=== PATIENT | female | born 1995 | race Caucasian/White ===

== ENCOUNTER 2021-06-02 06:48 | Emergency (ER) | payer MEDICAID, SELFPAY ==
[2021-06-02 06:52] VITALS: BP 114/73; PULSE 100; RESP 18; TEMP 36.7; O2SAT 96; BMI 38.0
--- NOTE | 2021-06-02 07:08 | W.ED.DENTAL ---
HPI - Dental/Oral General: Chief complaint: Dental/Oral Stated complaint: SWOLLEN FACE, SOB Time Seen by Provider: 06/02/21 06:57 History of Present Illness: 6-year-old female presents emergency room complaining of left lower mandible swelling and discomfort. She had it for a couple of days swelling significantly increased overnight. She been planning to see a dentist but was not yet able to. MD Complaint: tooth pain Onset (ago): hour(s) Duration: constant Severity: mild Relieving factors: nothing Exacerbating factors: nothing Associated symptoms: Reports gum swelling; Denies ear or mastoid pain, fever(s), odynophagia, sore throat or tongue swelling Treatment prior to arrival: none Review of Systems Const: Denies: fever(s) ENMT: Denies: odynophagia or ear or mastoid pain Card: Denies: chest pain, edema, dyspnea on exertion or orthopnea Resp: Denies: dyspnea, productive cough or non-productive cough GI: Denies: abdominal pain, nausea, vomiting, diarrhea or constipation All/Imm: Denies: tongue swelling [facility] PFSH: Medical History (Updated 06/02/21 @ 07:40 by Denny Trejo DO) No significant past medical history Surgical History (Updated 06/02/21 @ 07:40 by Denny Trejo DO) No significant past surgical history Social History Smoking and tobacco status: current every day smoker Alcohol intake: never Female Reproductive History: Date of last menstrual period: 04/28/21 Physical Exam Const: COMMON NORMALS: no acute distress GENERAL APPEARANCE: cooperative and comfortable ORIENTATION/CONSCIOUSNESS: Yes awake, Yes oriented to person, Yes oriented to place and Yes oriented to time HENMT: COMMON NORMALS: normocephalic, atraumatic and hearing grossly normal bilaterally HEAD & SCALP: normocephalic and atraumatic OTHER: Swelling of the left lower mandible anteriorly, associated with the left mandibular canine teeth. No identifiable abscess. Dental caries noted in that region. Tender to palpation no submandibular fullness no palpable cervical lymphadenopathy Neck/C-Spine: COMMON NORMALS: no JVD Resp: COMMON NORMALS: normal respiratory effort, No retractions, No use of accessory muscles and clear to auscultation bilaterally AUSCULTATION: clear to auscultation bilaterally Cardio: COMMON NORMALS: no JVD, regular rate, regular rhythm and No murmurs present (Cardio) RATE: regular rate RHYTHM: regular rhythm GI: COMMON NORMALS: Soft to palpation and No hepatosplenomegaly present AUSCULTATION: Yes normoactive bowel sounds PALPATION: Yes Soft to palpation, No Tenderness to palpation present (GI), No Guarding due to palpation present (GI) and Yes No hepatosplenomegaly present Extremity: COMMON NORMALS: normal to inspection, capillary refill normal, no clubbing, cyanosis or edema, no calf tenderness and no pedal edema Neuro: SENSORIUM/ORIENTATION: Yes oriented to person, Yes oriented to place and Yes oriented to time Skin: COMMON NORMALS: no rashes or lesions noted GENERAL SKIN EXAM: no rashes or lesions noted Course Vital Signs: Vital signs: Vital Signs Temperature 98.0 F 06/02/21 07:10 Pulse Rate 98 06/02/21 07:21 Respiratory Rate 18 06/02/21 07:21 Blood Pressure 116/70 06/02/21 07:21 Pulse Oximetry 97 06/02/21 07:21 MDM - Dental/Oral Medical Decision Making Dental caries I cannot identify a abscess that I could drain at this time. We will go ahead and start the patient on Augmentin also gave hydrocodone for pain encouraged to follow-up with the dentist as soon as possible Discharge Plan Discharge Patient Disposition: Home Clinical Impression: Dental caries Condition: Stable Prescriptions: New Augmentin 875-125 mg tablet 1 tab PO BID Qty: 20 0RF hydrocodone-acetaminophen 5-325 mg tablet 1 tab PO Q6H PRN (Reason: pain) Qty: 10 0RF Discharge Orders: Discharge ED (Routine); Ordered 06/02/21 Ordered By: Denny Trejo Referrals: Alyson Irby MD [Primary Care Provider] - Discharge Diet: Soft Mechanical Discharge Activity: Increase activity as tolerated Activity Restrictions/Additional Instructions: Follow-up with a dentist as soon as you are able. If you have any further problems or difficulties you may return to the emergency room. Coding Level of Care Code ED Cane Flume Feeding Machine Operator for Michael Pop
[2021-06-02 07:10] VITALS: BP 116/70; PULSE 98; RESP 18; TEMP 36.7; O2SAT 97
[2021-06-02 07:21] VITALS: BP 116/70; PULSE 98; RESP 18; O2SAT 97
== END 2021-06-02 07:20 | disposition home or self-care (01) ==
PROVIDERS: Emergency Provider Family Medicine; PCP Family Medicine
DX: K02.9 Dental caries, unspecified (principal); F17.210 Nicotine dependence, cigarettes, uncomplicated
CPT/HCPCS: 99282

== ENCOUNTER → 2021-10-16 14:22 | Outpatient (BNVA) | payer BC, MEDICAID, SELFPAY | PROVIDERS: Visit Provider Registered Nurse Neonatal Intensive Care | DX: R11.2 Nausea with vomiting, unspecified (principal) | CPT/HCPCS: 81025 ==

== ENCOUNTER → 2021-11-02 13:28 | Outpatient (BNVA) | payer BC, MEDICAID, SELFPAY | PROVIDERS: Visit Provider Psychiatry & Neurology Psychiatry | DX: F43.12 Post-traumatic stress disorder, chronic (principal); F33.1 Major depressive disorder, recurrent, moderate; F41.1 Generalized anxiety disorder; F17.210 Nicotine dependence, cigarettes, uncomplicated | CPT/HCPCS: 99204 ==

== ENCOUNTER → 2022-08-17 11:25 | Outpatient (BNVA) | payer BC, MEDICAID, SELFPAY | PROVIDERS: Visit Provider Emergency Medicine | DX: N64.4 Mastodynia (principal) | CPT/HCPCS: 81025 ==

== ENCOUNTER 2022-09-26 21:03 | Emergency (ER) | payer MEDICAID, SELFPAY ==
[2022-09-26 21:10] VITALS: BP 123/74; PULSE 98; RESP 12; TEMP 36.5; O2SAT 98; BMI 42.5
[2022-09-26 21:17] VITALS: BP 132/81; PULSE 93; RESP 18; O2SAT 98
--- NOTE | 2022-09-26 21:23 | W.ED.ABDPA2 ---
HPI - Abdominal Pain General: Chief Complaint: Abdominal Pain Stated Complaint: hernia pain Time Seen by Provider: 09/26/22 21:06 Source: patient Mode of arrival: ambulatory Limitations: no limitations History of Present Illness: 19-year-old female states she has had umbilical hernia over the last 3 to 4 months that she has noticed. She states that seems to been getting larger she has some pain with that she states that she is always able to reduce it is easily reducible here. She currently 10 weeks states that she want to get the hernia checked out. Denies any complaints of the baby she had an ultrasound denies any bleeding denies any discharge. Associated Symptoms: Denies chills, diarrhea, dysuria, fever(s), nausea and vomiting Review of Systems Const: Denies: fever(s) or chills ENMT: Denies: throat pain or dental pain Card: Denies: chest pain Resp: Denies: dyspnea GI: Reports: abdominal pain; Denies: nausea, vomiting or diarrhea : Denies: dysuria Musc: Denies: neck pain or back pain Skin/Breast: Denies: rash Neuro: Denies: headache(s) PFSH ED PFSH: Medical History No significant past medical history Psychiatric care Surgical History No significant past surgical history Social History Smoking and tobacco status: current every day smoker cigarettes Packs smoked per day: 1 Years cigarettes smoked: 12 Quit status (tobacco): not considering quitting Second hand smoke exposure: No Smoking risk assessment/counseling performed?: No Alcohol intake: former Year of sobriety/quit date alcohol: 2021 Desire information about alcohol rehabilitation?: No Counseling given: No Substance/Drug Use: never Desire information about substance/drug rehabilitation?: No Counseling given: No Physical Exam Const: COMMON NORMALS: no acute distress and patient oriented x3 HENMT: COMMON NORMALS: normocephalic and atraumatic HEAD & SCALP: normocephalic and atraumatic Eye: COMMON NORMALS: conjunctivae normal CONJUNCTIVA: Yes conjunctivae normal Chest: COMMONS NORMALS: normal inspection of the chest Resp: COMMON NORMALS: normal respiratory effort Cardio: COMMON NORMALS: regular rate RATE: regular rate GI: OTHER: Umbilical hernia palpated no tenderness at this time no strangulation hernias were easily reducible Extremity: COMMON NORMALS: normal to inspection Neuro: COMMON NORMALS: patient oriented x3 Psych: COMMON NORMALS: mental status grossly normal Course Vital Signs: Vital signs: Vital Signs Temperature 97.7 F 09/26/22 21:10 Pulse Rate 93 09/26/22 21:17 Respiratory Rate 18 09/26/22 21:17 Blood Pressure 132/81 09/26/22 21:17 Pulse Oximetry 98 09/26/22 21:17 Oxygen Delivery Me thod Room Air 09/26/22 21:17 MDM - Abdominal Pain Medical Decision Making Patient presents with umbilical hernia its been there for months is easily reducible she has no signs of strangulation here her abdominal exam is benign she is currently 10 weeks she take Tylenol for the pain follow-up with her OB she does not need emergent surgery at this time. Discharge Plan Discharge Patient Disposition: Home Clinical Impression: Hernia, umbilical Condition: Stable Prescriptions: No Action sertraline [Zoloft] 100 mg tablet 100 mg PO DAILY Qty: 30 2RF trazodone 50 mg tablet 100 mg PO .HS PRN (Reason: insomnia) Qty: 60 1RF PNV #[id number] 30 mg iron-10 mg iron-1 mg capsule 1 cap PO DAILY Qty: 30 2RF Discharge Orders: Discharge ED (Routine); Ordered 09/26/22 Ordered By: Danitza Price Referrals: Alyson Irby MD [Primary Care Provider] - 1-3 days Discharge Diet: Advance as tolerated Discharge Activity: Resume usual activity Patient Instructions: Umbilical Hernia (ED) Coding Level of Care Code ED As[employer]er [employer] for Michael Pop
[2022-09-26 21:39] VITALS: BP 146/104; PULSE 91; RESP 18; O2SAT 96
== END 2022-09-26 21:42 | disposition home or self-care (01) ==
PROVIDERS: Emergency Provider Emergency Medicine; PCP Family Medicine
DX: O26.891 Other specified pregnancy related conditions, first trimester (principal); K42.9 Umbilical hernia without obstruction or gangrene; Z3A.10 10 weeks gestation of pregnancy; O99.331 Smoking (tobacco) complicating pregnancy, first trimester; F17.210 Nicotine dependence, cigarettes, uncomplicated
CPT/HCPCS: 99283

== ENCOUNTER 2022-11-01 22:49 | Emergency (ER) | payer MEDICAID, SELFPAY ==
[2022-11-01 23:19] VITALS: BP 127/82; PULSE 91; RESP 18; O2SAT 98; BMI 41.1
--- NOTE | 2022-11-01 23:26 | W.ED.ABDPA2 ---
HPI - Abdominal Pain General: Chief Complaint: Abdominal Pain Stated Complaint: 15 Wks Fell at work ABD Pain Time Seen by Provider: 11/01/22 23:26 PFSH ED PFSH: Medical History No significant past medical history Psychiatric care Surgical History No significant past surgical history Social History Smoking and tobacco status: current every day smoker cigarettes Packs smoked per day: 1 Years cigarettes smoked: 12 Quit status (tobacco): not considering quitting Second hand smoke exposure: No Smoking risk assessment/counseling performed?: No Alcohol intake: former Year of sobriety/quit date alcohol: 2021 Desire information about alcohol rehabilitation?: No Counseling given: No Substance/Drug Use: never Desire information about substance/drug rehabilitation?: No Counseling given: No Course Vital Signs: Vital signs: Vital Signs Pulse Rate 91 11/01/22 23:19 Respiratory Rate 18 11/01/22 23:19 Blood Pressure 127/82 11/01/22 23:19 Pulse Oximetry 98 11/01/22 23:19 Oxygen Delivery Me thod Room Air 11/01/22 23:19 Discharge Plan Discharge Condition: Stable Prescriptions: No Action sertraline [Zoloft] 100 mg tablet 100 mg PO DAILY Qty: 30 2RF trazodone 50 mg tablet 100 mg PO .HS PRN (Reason: insomnia) Qty: 60 1RF PNV #[id number] acid-[id number] 30 mg iron-10 mg iron-1 mg capsule 1 cap PO DAILY Qty: 30 2RF Referrals: Alyson Irby MD [Primary Care Provider] - Coding Level of Care Code ED Steward/Stewardess for Michael Pop
[2022-11-01 23:52] LABS: Basophils # 0.1 10^3/uL (0.0-0.1); Basophils % 0.5 %; Eosinophils # 0.3 10^3/uL (0.0-0.8); Eosinophils % 2.5 %; Hemoglobin 11.7 g/dL (11.5-15.3); Lymphocytes # 2.9 10^3/uL (0.8-4.8); Lymphocytes % 26.3 %; Mean Corpuscular HGB Conc 32.5 g/dL (30.0-36.0); Mean Corpuscular Hemoglobin 28.8 pg (28.0-34.0); Mean Corpuscular Volume 88.7 fl (81-99); Mean Platelet Volume 9.6 fL (7.4-10.4); Monocytes # 0.9 10^3/uL (0.2-0.9); Monocytes % 8.3 %; Neutrophils # 6.83 10^3/uL (1.8-7.7); Neutrophils % 61.9 %; Nucleated Red Blood Cells % 0 %; Platelet Count 289 10^3/cmm (130-400); Red Blood Count 4.06 10^6/uL (4.1-5.3); Red Cell Distribution Width 13.2 % (12.1-15.1)
--- NOTE | 2022-11-01 23:56 | ED_ITS ---
HPI - General: Chief complaint: Abdominal Pain Stated complaint: 15 Wks Fell at work ABD Pain Time Seen by Provider: 11/01/22 23:26 History of Present Illness: Patient is a 15-week female who comes to the ED with abdominal cramping pain. Patient states that yesterday she was at work in the evening and tripped and fell hitting the front part of her abdomen on ground. Denies any injury at that time. Today she woke up and she started developing a lower ab dominal cramping type pain that she rates a 6 out of 10. She describes the pain as cramping that she usually gets before she starts her menstrual period. Denies any vaginal bleeding or vaginal discharge. Endorses having some occasional morning sickness for this but no other complications. Patient sees Dr. Irby for OB care. Denies any fever, nausea, vomiting, dysuria or hematuria. Patient states she took a dose of Tylenol before coming to the ED. Associated symptoms: Deny abdominal pain, dysuria, headache(s), nausea, vaginal discharge or vomiting Review of Systems Const: Denies: fever(s), chills or fatigue Eyes: Denies: change in vision or eye discomfort ENMT: Denies: throat pain, odynophagia, nasal discharge or nasal congestion Card: Denies: chest pain, palpitations, edema, swelling of feet/ankles, dyspnea on exertion or orthopnea Resp: Denies: dyspnea, productive cough or non-productive cough GI: Denies: abdominal pain, nausea, vomiting, diarrhea, constipation or hematochezia : Reports: pelvic pain (Cramping pain); Denies: flank pain, dysuria, hematuria, vaginal bleeding or vaginal discharge Musc: Denies: neck pain, back pain or extremity swelling Skin/Breast: Denies: rash or new lesions Neuro: Denies: headache(s), numbness in extremities or weakness in extremities PFSH ED PFSH: Medical History No significant past medical history Psychiatric care Surgical History No significant past surgical history Social History Smoking and tobacco status: current every day smoker cigarettes Packs smoked per day: 1 Years cigarettes smoked: 12 Quit status (tobacco): not considering quitting Second hand smoke exposure: No Smoking risk assessment/counseling performed?: No Alcohol intake: former Year of sobriety/quit date alcohol: 2021 Desire information about alcohol rehabilitation?: No Counseling given: No Substance/Drug Use: never Desire information about substance/drug rehabilitation?: No Counseling given: No Physical Exam Const: COMMON NORMALS: no acute distress, patient oriented x3, healthy appearing and alert HENMT: COMMON NORMALS: normocephalic HEAD & SCALP: normocephalic MOUTH: Normal oral and palatal mucosa present THROAT: posterior oropharynx normal and uvula midline Neck/C-Spine: COMMON NORMALS: supple GENERAL: Yes normal visual inspection Resp: COMMON NORMALS: normal respiratory effort, No retractions, No use of accessory muscles and clear to auscultation bilaterally AUSCULTATION: clear to auscultation bilaterally Cardio: COMMON NORMALS: regular rate, regular rhythm, S1 normal heart sound present, S2 normal heart sound present, No gallops present (Cardio), No clicks present (Cardio), No murmurs present (Cardio) and Peripheral pulses 2+ throughout RATE: regular rate RHYTHM: regular rhythm HEART SOUNDS: S1 normal heart sound present and S2 normal heart sound present PERIPHERAL PULSES: Peripheral pulses 2+ throughout GI: COMMON NORMALS: Normal to inspection, nondistended, normoactive bowel sounds present, Soft to palpation and no masses PALPATION: Yes Soft to palpation and Yes Tenderness to palpation present (GI) (Mild generalized central lower abdominal tenderness) : COMMON NORMALS: Yes no CVA tenderness BLADDER/KIDNEY EXAM: Yes no CVA tenderness Back/Pelvis: COMMON NORMALS: no CVA tenderness Extremity: COMMON NORMALS: normal to inspection Neuro: COMMON NORMALS: patient oriented x3 SENSORIUM/ORIENTATION: Yes alert GAIT: Yes Normal gait present Skin: GENERAL SKIN EXAM: dry skin Course Vital Signs: Vital signs: Vital Signs Temperature 98.3 F 11/02/22 00:08 Pulse Rate 76 11/02/22 02:03 Respiratory Rate 18 11/01/22 23:19 Blood Pressure 103/59 11/02/22 02:03 Pulse Oximetry 97 11/02/22 02:03 Oxygen Delivery Me thod Room Air 11/02/22 02:03 MDM - OB/Uterine Contractions Medical Decision Making Patient is a 15-week female who comes to the ED with abdominal cramping pain. Patient states that yesterday she was at work in the evening and tripped and fell hitting the front part of her abdomen on ground. Denies any injury at that time. Today she woke up and she started developing a lower abdominal cramping type pain that she rates a 6 out of 10. She describes the pain as cramping that she usually gets before she starts her menstrual period. Denies any vaginal bleeding or vaginal discharge. Endorses having some occasional morning sickness for this but no other complications. Patient sees Dr. Irby for OB care. Denies any fever, nausea, vomiting, dysuria or hematuria. Patient states she took a dose of Tylenol before coming to the ED. vital stable. she appears nontoxic in no acute distress or pain. She has some mild lower abdominal generalized tenderness but rest of exam is benign. CBC, CMP, lipase and UA were all unremarkable. OB ultrasound showed single live fetus at the age of 15 weeks and a day and no other acute findings noted. Petty ent was diagnosed with lower abdominal cramping pain while and she was stable for discharge home. Told to follow-up with her OB at her next scheduled appointment. Return to ED precautions given. Patient understood and agreed with plan. Lab Data I reviewed the patient's lab results. 11/01/22 23:45 11/01/22 23:45 Radiology Impressions Obstetrics Ultrasound 11/02/22 23:54 IMPRESSION: 1. Single living fetus, composite age: 15 weeks, 1 day. 2. Anterior placenta. No visible placental abnormality on the provided images. 3. Normal amniotic fluid volume. 4. Other details discussed above. Laboratory Results WBC 11.0 10^3/uL (4.0-10.0) H 11/01/22 23:45 RBC 4.06 10^6/uL (4.1-5.3) L 11/01/22 23:45 Hgb 11.7 g/dL (11.5-15.3) 11/01/22 23:45 Hct 36.0 % (37.0-47.0) L 11/01/22 23:45 MCV 88.7 fl (81-99) 11/01/22 23:45 MCH 28.8 pg (28.0-34.0) 11/01/22 23:45 MCHC 32.5 g/dL (30.0-36.0) 11/01/22 23:45 RDW 13.2 % (12.1-15.1) 11/01/22 23:45 Plt Count 289 10^3/cmm (130-400) 11/01/22 23:45 MPV 9.6 fL (7.4-10.4) 11/01/22 23:45 Neut % (Auto) 61.9 % 11/01/22 23:45 Lymph % (Auto) 26.3 % 11/01/22 23:45 [place] % (Auto) 8.3 % 11/01/22 23:45 Eos % (Auto) 2.5 % 11/01/22 23:45 Baso % (Auto) 0.5 % 11/01/22 23:45 Neut # (Auto) 6.83 10^3/uL (1.8-7.7) 11/01/22 23:45 Lymph # (Auto) 2.9 10^3/uL (0.8-4.8) 11/01/22 23:45 [place] # (Auto) 0.9 10^3/uL (0.2-0.9) 11/01/22 23:45 Eos # (Auto) 0.3 10^3/uL (0.0-0.8) 11/01/22 23:45 Baso # (Auto) 0.1 10^3/uL (0.0-0.1) 11/01/22 23:45 Nucleated RBC % (auto) 0 % 11/01/22 23:45 Nucleated RBCs # 0.0 /100WBC 11/01/22 23:45 Sodium 137 mmol/L (136-145) 11/01/22 23:45 Potassium 3.6 mmol/L (3.5-5.1) 11/01/22 23:45 Chloride 104 mmol/L (98-107) 11/01/22 23:45 Carbon Dioxide 21 mmol/L (22-29) L 11/01/22 23:45 Anion Gap 15.6 (5-19) 11/01/22 23:45 BUN 8 mg/dL (6-20) 11/01/22 23:45 Creatinine 0.4 mg/dL (0.5-0.9) L 11/01/22 23:45 GFR Calculation 190.1 mL/min (90-130) H 11/01/22 23:45 Glucose 116 mg/dL (65-115) H 11/01/22 23:45 Calculated Osmolality 283 mOsm/kg (285-295) L 11/01/22 23:45 Calcium 8.7 mg/dL (8.5-10.5) 11/01/22 23:45 Total Bilirubin 0.2 mg/dL (0.15-1.2) 11/01/22 23:45 AST 17 U/L (0-32) 11/01/22 23:45 ALT 21 U/L (0-33) 11/01/22 23:45 Alkaline Phosphatase 99 U/L (35-105) 11/01/22 23:45 Total Protein 6.7 g/dL (6.6-8.7) 11/01/22 23:45 Albumin 3.7 g/dL (3.5-5.2) 11/01/22:45 Globulin 3.0 g/dL (1.3-4.6) 11/01/22 23:45 Lipase 21 U/L (13-60) 11/01/22 23:45 Urine Color Light yellow (Yellow) 11/02/22 00:05 Urine Appearance Cloudy (CLEAR) A 11/02/22 00:05 Urine pH 6.5 (5-7) 11/02/22 00:05 Ur Specific [place] 1.020 (1.005-1.030) 11/02/22 00:05 Urine Protein Neg (Negative) 11/02/22 00:05 Urine Glucose (UA) Norm (Normal) 11/02/22 00:05 Urine Ketones Negative (Negative) 11/02/22 00:05 Urine Blood Neg (Negative) 11/02/22 00:05 Urine Nitrate Negative (Negative) 11/02/22 00:05 Urine Bilirubin Neg (Negative) 11/02/22 00:05 Urine Urobilinogen Neg mg/dL (Negative) 11/02/22 00:05 Ur Leukocyte Esterase 2+ (Negative) H 11/02/22 00:05 Urine RBC 0-4 /hpf (0-2) H 11/02/22 00:05 Urine WBC 5-10 /hpf (0-5) H 11/02/22 00:05 Ur Squamous Epith Cells 15-25 /hpf (0-5) H 11/02/22 00:05 Amorphous Sediment Not Reportable 11/02/22 00:05 Urine Bacteria 2+ /hpf (NONE) H 11/02/22 00:05 Discharge Plan Discharge Patient Disposition: Home Clinical Impression: with abdominal cramping of lower quadrant, antepartum Condition: Stable Prescriptions: No Action sertraline [Zoloft] 100 mg tablet 100 mg PO DAILY Qty: 30 2RF trazodone 50 mg tablet 100 mg PO .HS PRN (Reason: insomnia) Qty: 60 1RF PNV #[id number] acid-[id number] 30 mg iron-10 mg iron-1 mg capsule 1 cap PO DAILY Qty: 30 2RF Discharge Orders: Discharge ED (Routine); Ordered 11/02/22 Ordered By: Ramirez Humphreys Referrals: Alyson Irby MD [Primary Care Provider] - Discharge Diet: Regular Discharge Activity: Increase activity as tolerated Patient Instructions: Abdominal Pain (ED) Activity Restrictions/Additional Instructions: Follow-up with your OB at your next scheduled appointment. Continue taking all medications as previously prescribed. Return to the ER or your medical provider if condition worsens. Please read and understand discharge instructions. Thank you for choosing [facility] for your healthcare needs today. Please realize this is an emergency room and that we are providing you with a medical screening exam and this may not be complete and all inclusive of all the testing and or work up that you may need to determine your ailment or severity of your illness. It is very important that you follow up as instructed or that you return to the Emergency Department should you have concerns or if your condition changes or worsens in any way. Coding Level of Care Code ED Pulverizer Operator for Michael oPp
[2022-11-02 00:08] VITALS: TEMP 36.8
[2022-11-02 00:12] LABS: Alanine Aminotransferase 21 U/L (0-33); Albumin Level 3.7 g/dL (3.5-5.2); Alkaline Phosphatase 99 U/L (35-105); Anion Gap 15.6 (5-19); Aspartate Amino Transferase 17 U/L (0-32); Blood Urea Nitrogen 8 mg/dL (6-20); Calcium 8.7 mg/dL (8.5-10.5); Carbon Dioxide 21 mmol/L (22-29); Chloride 104 mmol/L (98-107); Glomerular Filtration Rate 190.1 mL/min (90-130); Glucose 116 mg/dL (65-115); Lipase 21 U/L (13-60); Osmolality Calculated 283 mOsm/kg (285-295); Potassium 3.6 mmol/L (3.5-5.1); Sodium 137 mmol/L (136-145); Total Bilirubin 0.2 mg/dL (0.15-1.2); Total Protein 6.7 g/dL (6.6-8.7)
[2022-11-02 00:18] LABS: Add Urine Microscopic? YES; Bacteria Urine 2+ /hpf; Bilirubin Urine Neg (Negative); Blood Urine Neg (Negative); Glucose Urine UA Norm (Normal); Ketones Urine Negative (Negative); Leukocyte Esterase Urine 2+ (Negative); Nitrate Urine Negative (Negative); Protein Urine Neg (Negative); RBC Urine 0-4 /hpf (0-2); Squamous Epithelial Cell Urine 15-25 /hpf (0-5); Urine Appearance Cloudy (CLEAR); Urine Color Light yellow (Yellow); Urobilinogen Urine Neg (Negative); pH Urine 6.5 (5-7)
[2022-11-02 00:19] LABS: Add Urine Culture? No
[2022-11-02 02:03] VITALS: BP 103/59; PULSE 76; O2SAT 97
[2022-11-02 03:09] VITALS: BP 102/61; PULSE 72; RESP 18; O2SAT 95
--- NOTE | 2022-11-02 23:54 | USR_ITS ---
PROCEDURE INFORMATION: Exam: US After First Trimester, Transabdominal Exam date and time: 11/02/2022 12:49 AM Age: 27 years old Clinical indication: complicated by abdominal or pelvic pain; Other: Ground-level fall at work on 10/31/22 C/O pelvic pain which radiates to the back. No vaginal bleeding. Gestational age or lmp: 14w 4d by lmp; ; Additional info: Abdominal cramping-15 weeks LABS AND CLINICAL REPORTS: Last menstrual period start date: 07/23/2022 Gestational age (Established): 14 w 4 d Estimated due date (Established): 04/29/2023 TECHNIQUE: Imaging protocol: Real-time transabdominal obstetrical ultrasound of the maternal pelvis and a second or third trimester with image documentation. COMPARISON: No relevant prior studies available. FINDINGS: Single living fetus in transverse lie. Anterior placenta. No visible placental abnormality on the provided images. No significant subchorionic hematoma visualized. Amniotic fluid volume within normal limits, LATOYA 9.1 cm. Cervical length was estimated with transabdominal scanning, measuring approximately 4.3 cm. No definite cervical canal dilation or fluid on the provided images. BPD: , 2.8 cm. , 15 weeks, 0 days HC: , 10.6 cm. , 15 weeks, 0 days AC: , 9.4 cm. , 15 weeks, 3 days FL: , 1.6 cm. , 14 weeks, 6 days Composite age: 15 weeks, 1 day. Estimated weight: 116 grams, (0 lb 4 oz). heart activity documented by the technologist, 150 bpm. Evaluation of anatomy still limited by early gestation. Complete/detailed evaluation of anatomy was not performed/possible at this time. stomach and cord insertion were grossly visualized at this time, as were all 4 extremities. Followup/complete evaluation of anatomy recommended, as clinically appropriate. Neither maternal ovary is visualized at this time. No visible maternal adnexal abnormality on the provided images. The urinary bladder was not completely evaluated/imaged at this time. US/US OB limited [id number] IMPRESSION: 1. Single living fetus, composite age: 15 weeks, 1 day. 2. Anterior placenta. No visible placental abnormality on the provided images. 3. Normal amniotic fluid volume. 4. Other details discussed above.
== END 2022-11-02 03:17 | disposition home or self-care (01) ==
PROVIDERS: Emergency Provider Physician Assistant; PCP Family Medicine
DX: O26.892 Other specified pregnancy related conditions, second trimester (principal); R10.30 Lower abdominal pain, unspecified; Z3A.15 15 weeks gestation of pregnancy
CPT/HCPCS: 36415; 76815; 80053; 81001; 83690; 85025; 99284

== ENCOUNTER 2023-02-03 16:55 | Outpatient (CLI) | payer BC, SELFPAY ==
[2023-02-03] VITALS (9 sets, daily range): BP systolic 88–152; BP diastolic 51–86; PULSE 94–120; RESP 16–17; BMI 43.9
== END 2023-02-03 18:10 | disposition home or self-care (01) ==
LOC: OPOB 16:56 → OBGYN 16:57
PROVIDERS: PCP Family Medicine; Visit Provider Family Medicine
DX: O36.8190 Decreased fetal movements, unspecified trimester, not applicable or unspecified (principal); Z3A.00 Weeks of gestation of pregnancy not specified
CPT/HCPCS: 59025; 99211

== ENCOUNTER 2023-03-27 16:18 | Outpatient (CLI) | payer BC, SELFPAY ==
[2023-03-27 16:18] VITALS: BMI 44.9
[2023-03-27 16:39] VITALS: RESP 18
[2023-03-27 16:41] VITALS: BP 115/70; PULSE 99
[2023-03-27 17:01] VITALS: BP 134/81; PULSE 101
== END 2023-03-27 17:20 | disposition home or self-care (01) ==
LOC: OPOB 16:24 → OBGYN 16:25
PROVIDERS: PCP Family Medicine; Visit Provider Family Medicine
DX: O24.419 Gestational diabetes mellitus in pregnancy, unspecified control (principal); Z3A.00 Weeks of gestation of pregnancy not specified
CPT/HCPCS: 59025; 99211

== ENCOUNTER 2023-04-03 16:26 | Outpatient (CLI) | payer BC, SELFPAY ==
[2023-04-03 16:32] VITALS: BP 125/72; PULSE 110; TEMP 35.9
[2023-04-03 16:34] VITALS: BMI 46.0
[2023-04-03 16:38] VITALS: RESP 16; TEMP 36.6
[2023-04-03 17:05] VITALS: BP 125/72; PULSE 110; RESP 16; TEMP 36.6
== END 2023-04-03 17:05 | disposition home or self-care (01) ==
LOC: OPOB 16:26 → OBGYN 16:27
PROVIDERS: PCP Family Medicine; Visit Provider Family Medicine
DX: O24.419 Gestational diabetes mellitus in pregnancy, unspecified control (principal); Z3A.00 Weeks of gestation of pregnancy not specified
CPT/HCPCS: 59025

== ENCOUNTER → 2023-04-19 09:58 | Day surgery (SDC) | payer BC, MEDICAID, SELFPAY | PROVIDERS: PCP Family Medicine; Visit Provider Family Medicine | DX: Z01.818 Encounter for other preprocedural examination (principal) ==

== ENCOUNTER 2023-04-23 05:10 | Inpatient (IN) | payer BC, MEDICAID, SELFPAY ==
--- NOTE | 2023-04-19 10:37 | ANES.PREANE2 ---
Pre-Anesthetic Assessment Height/Weight: Height 1.6 m Operation Date: 04/23/23 07:20 Proposed Procedures p Section(Not Applicable) - Alyson Irby MD Familial anesthetic complications: None Social No alcohol and No tobacco Exam alert, oriented x 3, clear to auscultation bilaterally and regular rate & rhythm Airway Mallampati: Class I Dentition: full Anesthetic Plan ASA status: 2 Anesthesia: Regional (specify below) Other: spinal Risk of > 500 ml blood loss (7ml/kg in children): Yes, adequate IV access and fluids planned Medications/Allergies Home Medications Medication Instructions Recorded Confirmed Last Taken Type vitamin#30 30 mg iron-10 1 cap PO DAILY #30 caps 08/17/22 03/22/23 Unknown Rx mg iron-folic acid 1 mg-omg3 capsule trazodone 50 mg tablet 100 mg (2 x 50 mg) PO .HS PRN 12/21/22 02/03/23 Unknown Rx insomnia #60 tabs sertraline 100 mg tablet (Zoloft) 100 mg PO DAILY #90 tabs 03/22/23 03/22/23 Unknown Rx Allergies Allergy/AdvReac Type Severity Reaction Status Date / Time No Known Allergies Allergy Verified 03/22/23 13:24 [facility] Anesthesia Medical History No significant past medical history Psychiatric care Surgical History No significant past surgical history Social History Smoking and tobacco/nicotine status: current every day tobacco/nicotine user cigarettes Packs smoked per day: 1 Years cigarettes smoked: 12 Quit status (tobacco/nicotine): not considering quitting Second hand smoke exposure: No Alcohol intake: former Year of sobriety/quit date alcohol: 2021 Substance/Drug Use: never Data Anesthesia Cardiac Studies: No Data to Display
[2023-04-23] VITALS (103 sets, daily range): BP systolic 84–127; BP diastolic 47–69; PULSE 71–96; RESP 15–17; TEMP 36–36.7; O2SAT 91–98; BMI 46.7
[2023-04-23 05:33] LABS: Basophils # 0.1 10^3/uL (0.0-0.1); Basophils % 0.4 %; Eosinophils # 0.1 10^3/uL (0.0-0.8); Eosinophils % 0.9 %; Hematocrit 35.4 % (36-47); Lymphocytes # 2.5 10^3/uL (0.8-4.8); Lymphocytes % 18.1 %; Mean Corpuscular HGB Conc 31.6 g/dL (30-55); Mean Corpuscular Hemoglobin 25.9 pg (27-33); Mean Corpuscular Volume 81.8 fl (85-98); Mean Platelet Volume 9.6 fL (7.4-10.4); Monocytes # 0.9 10^3/uL (0.2-0.9); Monocytes % 6.5 %; Neutrophils # 9.91 10^3/uL (1.8-7.7); Neutrophils % 71.9 %; Nucleated Red Blood Cells % 0.1 %; Platelet Count 416 10^3/cmm (157-399); Red Blood Count 4.33 10^6/uL (3.85-5.65); Red Cell Distribution Width 14.9 % (12.1-15.1); White Blood Count 13.79 10^3/uL (3.29-11.43)
[2023-04-23] MEDS: lactated ringers 1,000 ML 999 ML IV (06:28)
[2023-04-23] MEDS: famotidine 20 mg/2 mL INJ IVP (07:04)
[2023-04-23] MEDS: metoclopramide 5 mg/mL SDV 2 mL 10 MG IVP (07:05)
[2023-04-23] MEDS: citric acid-sodium citrate 30 mL UDC PO (07:06)
--- NOTE | 2023-04-23 07:09 | PM.OPHPUD ---
Labor & Delivery H&P Update Date of Procedure: April 23, 2023 Date H&P Performed: 04/19/23 Admission Diagnosis: IUP at [id number] gestation Breech presentation Gestational diabetes mellitus, diet controlled Planned procedure: Operation Date: 04/23/23 07:20 Proposed Procedures p Section(Not Applicable) - Alyson Irby MD
--- NOTE | 2023-04-23 08:49 | P.OP_ITS ---
Operative Report Date of procedure: April 23, 2023 Pre-op diagnosis: IUP at 39 weeks 1 day gestation Breech presentation Suspected macrosomia Polyhydramnios Maternal gestational diabetes mellitus, diet controlled Desired permanent surgical sterilization Procedure done: Primary section via low transverse uterine incision Bilateral tubal ligation Specimens removed/disposition: Curry breech female infant Surgeon: Alyson Irby MD Estimated blood loss (mL): 500 IV fluids (mL): 1,700 Urine output (mL): 150 Complications: None Procedure: After informed consent the patient was taken to the OR where spinal anesthesia was administered. She was prepped and draped in normal sterile fashion in dorsal supine position with a left lateral tilt. After adequate spinal anesthesia was verified a Pfannenstiel skin incision was made and carried through to the underlying layer of fascia sharply. The fascia was entered sharply. The fascial incision was then extended laterally using the Mayos. The fascia was grasped with [place] clamps and the underlying rectus muscles were dissected off. The peritoneum was entered bluntly and the surgical site was manually stretched. The bladder blade was inserted. The vesicouterine peritoneum was identified and entered sharply using the Metzenbaums. Bladder flap was then created digitally. The bladder blade was then reinserted. Uterine incision was made in a transverse fashion in the lower uterine segment. Rupture membranes was performed sharply with a copious amount of clear fluid. The was de livered in curry breech presentation using standard breech maneuvers. The infant was suctioned at delivery and the cord was clamped and cut. The infant was handed to the waiting pediatric nurse. Cord blood was obtained. The placenta was delivered using fundal pressure and was grossly intact and normal to inspection. The uterus was then exteriorized from the abdomen. A dry sponge was used to clear the uterus of clots and debris. The uterine incision was then repaired using 0 Vicryl in a running locked fashion. A second layer of the same suture was used in an imbricating manner. Hemostasis was obtained. The left fallopian tube was then grasped with a Morris and a proximal portion of the tube was ligated and excised. Tubal ostia were visualized. Specimen sent to pathology. The cut portions of the tube were coagulated using the Bovie. The right fallopian tube was then grasped with a Morris and a midportion of the tube was ligated and excised. Tubal ostia were visualized. Segment was sent to pathology. The cut portions of the tube were coagulated using the Bovie. The uterus was then returned to the abdomen. Irrigation was used to clear the gutters of clots and debris and the uterine incision was reinspected for hemostasis. The peritoneum was reapproximated using 4-0 Vicryl in a running fashion. The rectus muscles were gently reapproximated using 1 [id number] stitch of 4-0 Vicryl. The subfascial tissue was hemostatic. The fascia was then reapproximated using 0 Vicryl in a running fashion. The subcutaneous tissue was then irrigated. The subcutaneous tissue was reapproximated using 4-0 Vicryl in a running fashion. The skin was then reapproximated using 4-0 Vicryl on a Sacha needle. Steri-Strips and a pressure bandage were applied and patient went to recovery in good condition. Sponge instrument and needle counts were correct.
[2023-04-23] MEDS: ketorolac 30 mg/mL INJ IVP ×2 (14:29→20:07)
--- NOTE | 2023-04-23 14:53 | ANES.PAUD2 ---
Pre-Anesthetic Update Pre-Anesthetic Assessment: Date of Surgery/Procedure: 04/23/23 Proposed Procedure: Operation Date: 04/23/23 07:20 Proposed Procedures p Section(Not Applicable) - Alyson Irby MD Any changes to Pre-Anesthetic Assessment?: No Last Intake: Intake Last Liquid Date 04/22/23 Last Liquid Time 23:30 Last Solid Date 04/22/23 Last Solid Time 23:30 Labs Last 48hrs: Short CBC 04/23/23 Range/Units 05:17 WBC 13.79 H (3.29-11.43) 10^ 3/uL Hgb 11.20 L (11.27-16.99) g/ dL Hct 35.4 L (36-47) % MCV 81.8 L (85-98) fl Plt Count 416 H (157-399) 10^3/c mm Neut % (Auto) 71.9 % Neut # (Auto) 9.91 H (1.8-7.7) 10^3/u L Blood Bank 04/23/23 05:17 Blood Type O Positive Rho(D) Type Rh positive Antibody Screen Negative Vitals: Temperature 97.2 F L 04/23/23 09:11 Temperature Source Oral 04/23/23 09:05 Pulse Rate 81 04/23/23 13:18 Pulse Rhythm Regular 04/23/23 05:30 Pulse Strength 3+ Normal 04/23/23 05:30 Respiratory Rate 16 04/23/23 11:18 Respiratory Effort Spontaneous, Non- Labored, Easy 04/23/23 05:30 Respiratory Depth Normal 04/23/23 05:30 Respiratory Patter n Normal 04/23/23 05:30 Blood Pressure 94/47 04/23/23 13:13 Blood Pressure Evon n 76 04/23/23 09:05 Pulse Oximetry 94 04/23/23 13:18 Oxygen Delivery Me thod Room Air 04/23/23 09:05 Exam: Pre-Anes Outpt Exam: alert, oriented x 3, clear to auscultation bilaterally and regular rate & rhythm Cardiac Studies: No Data to Display
--- NOTE | 2023-04-23 14:53 | ANE.PACU2 ---
Inpatient post-anesthesia follow up: Airway intact: Yes Vital signs: Temperature 97.2 F Pulse Rate 81 Respiratory Rate 16 Blood Pressure 94/47 Pulse Oximetry 94 Oxygen Delivery Me thod Room Air Oxygen Flow Rate Fraction of Inspir ed Oxygen Hydration adequate: Yes Nausea and vomiting: No Pain level: 2 Mental status: Baseline
[2023-04-23] MEDS: docusate sodium 100 mg Capsule PO (17:55)
[2023-04-23] MEDS: ferrous sulfate EC 325 mg Tablet PO (17:55)
[2023-04-23] MEDS: dextrose 5%-lactated ringers 1,000 ML 125 ML IV (17:55)
[2023-04-23] MEDS: sodium chloride 0.9% 500 ML 999 ML IV (17:55)
[2023-04-23] MEDS: nicotine 21 mg Patch 1 PATCH TRANSDERMA (20:07)
[2023-04-23 22:25] LABS: Hematocrit 33.1 % (36-47); Mean Corpuscular HGB Conc 30.5 g/dL (30-55); Mean Corpuscular Volume 85.1 fl (85-98); Mean Platelet Volume 10.9 fL (7.4-10.4); Platelet Count 367 10^3/cmm (157-399); Red Blood Count 3.89 10^6/uL (3.85-5.65); Red Cell Distribution Width 15.3 % (12.1-15.1); White Blood Count 13.18 10^3/uL (3.29-11.43)
[2023-04-23] MEDS: simethicone 80 mg Chew PO (23:27)
[2023-04-23] MEDS: HYDROcodone-acetaminophen 5-325 mg Tablet PO (23:27)
[2023-04-24] VITALS (7 sets, daily range): BP systolic 95–124; BP diastolic 53–77; PULSE 83–100; RESP 16–18; TEMP 36–36.8; O2SAT 95–96
[2023-04-24] MEDS: ferrous sulfate EC 325 mg Tablet PO ×2 (08:37→19:19)
[2023-04-24] MEDS: prenatal vitamin Capsule 1 CAP PO (08:37)
[2023-04-24] MEDS: HYDROcodone-acetaminophen 5-325 mg Tablet PO ×3 (08:37→19:19)
[2023-04-24] MEDS: docusate sodium 100 mg Capsule PO ×2 (08:37→19:19)
--- NOTE | 2023-04-24 16:29 | P.PN_ITS ---
Subjective 2 Subjective: Postop day 1 primary section for breech presentation. The patient is doing well. She is ambulating and tolerating a regular diet, she has average to light bleeding. She does admit to being more sore today. Vitals/I&O/Wt Last Vital Signs Temp 98.0 F 04/24/23 16:25 Pulse 100 04/24/23 16:25 Resp 16 04/24/23 11:18 BP 102/77 04/24/23 16:25 Pulse Ox 96 04/24/23 16:25 O2 Del Method Room Air 04/24/23 16:25 04/24/23 04/24/23 04/24/23 06:59 14:59 22:59 Output Total 700 / 2180 Balance -700 / -480 Weight last 48 hrs Weight 119.748 kg Physical Exam 2 Narrative: Alert and oriented standing over the bedside chair helping her daughter feed the infant. Heart regular rate and rhythm, lungs clear to auscultation bilaterally, abdomen is soft with appropriate postoperative tenderness, incision is clean dry and intact with Steri-Strips in place. Extremities have 1+ edema but no calf tenderness Urinary Catheter Management: Davila: Cath Placed During This Visit: yes, but has since been removed by the nurse Reason for Continuing Indwelling Catheter: Decision to DC Catheter Urinary Catheter Date of Insertion: 04/23/23 Urinary Catheter Time of Insertion: 07:26 Date Urinary Catheter Removed: 04/23/23 Time Urinary Catheter Discontinued: 20:20 Data 04/23/23 21:49 A&P Assessment and plan (1) Status post primary low transverse section: She is postop day 1 primary section with bilateral tubal ligation. She is doing well. Continue routine postoperative care Attestations 2 Medical Necessity Statement*: Routine postoperative and care Coding Level of Care Code Acute Code for Chg Fwd Diagnoses Status post primary low transverse section Z98.891
[2023-04-24] MEDS: ibuprofen 800 mg tablet PO (19:19)
[2023-04-24] MEDS: simethicone 80 mg Chew PO (22:51)
[2023-04-25] MEDS: HYDROcodone-acetaminophen 5-325 mg Tablet PO ×3 (00:45→15:07)
[2023-04-25 04:00] VITALS: BP 114/72; PULSE 91; RESP 18; TEMP 36.6; O2SAT 94
[2023-04-25] MEDS: prenatal vitamin Capsule 1 CAP PO (07:49)
[2023-04-25] MEDS: ibuprofen 800 mg tablet PO ×2 (07:49→15:07)
[2023-04-25] MEDS: docusate sodium 100 mg Capsule PO (07:49)
[2023-04-25 10:20] VITALS: BP 113/77; PULSE 101; RESP 17; TEMP 36.9; O2SAT 95
[2023-04-25 16:20] VITALS: BP 114/75; PULSE 75; TEMP 36.7; O2SAT 97
--- NOTE | 2023-04-25 16:47 | PM.DCS ---
Discharge Providers Date of Admission: 04/23/23 05:10 Date of Discharge: April 25, 2023 Attending Provider at Admission: Alyson Irby MD Attending Provider at Discharge: Alyson Irby MD Primary Care Provider: Alyson Irby MD Diagnoses at Discharge Discharge Diagnosis (1) Status post primary low transverse section: Status: Acute Reason for Visit Reason for Visit: csection Hospital Course Hospital Course This is a 28-year-old who underwent a primary for breech presentation along with a bilateral tubal ligation. She is postop day #2 doing well. Her bleeding has been average to minimal. Her pain is improved. She is ambulating and tolerating a regular diet. Physical Exam Narrative: Resting in bed, easily arousable, heart regular rate and rhythm, lungs clear to auscultation bilaterally, abdomen is soft with appropriate postoperative tenderness, incision is clean dry and intact with Steri-Strips in place, extremities have 2+ edema but no calf tenderness Urinary Catheter Management: Davila: Cath Placed During This Visit: yes, but has since been removed by the nurse Reason for Continuing Indwelling Catheter: Decision to DC Catheter Urinary Catheter Date of Insertion: 04/23/23 Urinary Catheter Time of Insertion: 07:26 Date Urinary Catheter Removed: 04/23/23 Time Urinary Catheter Discontinued: 20:20 Discharge Data Studies Completed and Pending Completed Studies During Hospitalization Category Date Time Status Pathology: Surgical [PTH] Stat Pth 04/23/23 08:55 Completed Laboratory Results WBC 13.18 10^3/uL (3.29-11.43) H 04/23/23 21:49 RBC 3.89 10^6/uL (3.85-5.65) 04/23/23 21:49 Hgb 10.10 g/dL (11.27-16.99) L 04/23/23 21:49 Hct 33.1 % (36-47) L 04/23/23 21:49 MCV 85.1 fl (85-98) 04/23/23 21:49 MCH 26.0 pg (27-33) L 04/23/23 21:49 MCHC 30.5 g/dL (30-55) 04/23/23 21:49 RDW 15.3 % (12.1-15.1) H 04/23/23 21:49 Plt Count 367 10^3/cmm (157-399) 04/23/23 21:49 MPV 10.9 fL (7.4-10.4) H 04/23/23 21:49 Neut % (Auto) 71.9 % 04/23/23 05:17 Lymph % (Auto) 18.1 % 04/23/23 05:17 [place] % (Auto) 6.5 % 04/23/23 05:17 Eos % (Auto) 0.9 % 04/23/23 05:17 Baso % (Auto) 0.4 % 04/23/23 05:17 Neut # (Auto) 9.91 10^3/uL (1.8-7.7) H 04/23/23 05:17 Lymph # (Auto) 2.5 10^3/uL (0.8-4.8) 04/23/23 05:17 [place] # (Auto) 0.9 10^3/uL (0.2-0.9) 04/23/23 05:17 Eos # (Auto) 0.1 10^3/uL (0.0-0.8) 04/23/23 05:17 Baso # (Auto) 0.1 10^3/uL (0.0-0.1) 04/23/23 05:17 Nucleated RBC % (auto) 0.1 % 04/23/23 05:17 Nucleated RBCs # 0.0 /100WBC 04/23/23 05:17 Blood Type O Positive 04/23/23 05:17 Rho(D) Type Rh positive 04/23/23 05:17 Antibody Screen Negative 04/23/23 05:17 Vitals Last Vital Signs Temp 98.4 F 04/25/23 10:20 Pulse 101 H 04/25/23 10:20 Resp 17 04/25/23 10:20 BP 113/77 04/25/23 10:20 Pulse Ox 95 04/25/23 10:20 O2 Del Method Room Air 04/25/23 10:20 Discharge Plan Discharge Patient Disposition: Home Condition: Stable Prescriptions: New ibuprofen 800 mg Tablet 800 mg PO TID PRN (Reason: Abdominal Discomfort) Qty: 30 0RF hydrocodone-acetaminophen 5-325 mg Tablet 1 - 2 tab PO Q4H PRN (Reason: Moderate To Severe Pain) Qty: 15 0RF docusate sodium 100 mg Capsule 100 mg PO BID Qty: 60 0RF Discharge Orders: Discharge Order (Routine); Ordered 04/25/23 Ordered By: Alyson Irby Referrals: Alyson Irby MD [Primary Care Provider] - 1 week Discharge Activity: Limit activity as instructed Patient Instructions: Depression (DC), Bleeding (DC), Preeclampsia and Eclampsia After Delivery (GEN), Hemorrhage (DC), OB - Eden/Surekha, OB Discharge Report, OB Food/Drug Interaction Guide, OB Care at Home, Opioid Safety Discharge Attestations Time Spent in Discharge Care*: less than 30 min Quality Metrics Clinical Quality Measures [ No reported AMI, CVA or VTE this stay] Coding Level of Care Code Acute Code for Chg Fwd Diagnoses Status post primary low transverse section Z98.891
[2023-04-25 19:26] VITALS: BP 112/78; PULSE 86; RESP 16; TEMP 36.8; O2SAT 96
== END 2023-04-25 20:22 | disposition home or self-care (01) | DRG 785 ==
PROVIDERS: Admitting Provider Family Medicine; PCP Family Medicine; Visit Provider Family Medicine
PROC: 10D00Z1 Extraction of Products of Conception, Low, Open Approach (ICD-10-PCS; CPT 59514; principal; 2023-04-23 07:00)
DX: O32.1XX0 Maternal care for breech presentation, not applicable or unspecified (principal); Z3A.39 39 weeks gestation of pregnancy; Z37.0 Single live birth; O40.3XX0 Polyhydramnios, third trimester, not applicable or unspecified; O36.63X0 Maternal care for excessive fetal growth, third trimester, not applicable or unspecified; O24.420 Gestational diabetes mellitus in childbirth, diet controlled; Z30.2 Encounter for sterilization
CPT/HCPCS: 36415; 51702; 59409; 85025; 85027; 86850; 86900; 88302; 96374; 96376; J1885; J2274; J2371; J2405; J2765; J3010; J3490; J7030; J7040; J7120; J7121

== ENCOUNTER 2025-02-08 20:51 | Emergency (ER) | payer BC, MEDICAID, SELFPAY ==
[2025-02-08 20:53] VITALS: BP 139/79; PULSE 95; RESP 16; TEMP 36.9; O2SAT 98; BMI 42.1
--- NOTE | 2025-02-08 20:53 | XRR_ITS ---
PROCEDURE INFORMATION: Exam: XR Chest Exam date and time: 02/08/2025 10:38 PM Age: 29 years old Clinical indication: Pain; Chest pressure; Additional info: Chest pain TECHNIQUE: Imaging protocol: Radiologic exam of the chest. Views: 1 view. COMPARISON: No relevant prior studies available. FINDINGS: Lungs: No CHF/pulmonary edema. Visible lungs appear essentially clear. Pleural spaces: No visible pneumothorax. No definite pleural fluid. Heart/Mediastinum: Heart size is within normal limits. Bones/joints: No significant acute finding. XR/XR chest 1V portable [id number] IMPRESSION: 1. Essentially unremarkable single view chest. 2. Other details discussed above.
--- OUTSIDE RECORDS SUMMARY | 2025-02-08 20:59 | XMS_ITS | Data Portability ---
Author Organization [facility] Address [address] [address] Assessment Encounter Date Assessment Date Assessment LastModified by Organization Details LastModified Time 08/06/2024 08/06/2024 Patient is here today due to concerns for her weight. She had a baby a little over a year ago and is not done having children. She has tried and failed a 3 month at home weight loss program of counting calories and tracking food. I recommend starting a GLP1 for weight loss. I explained how GLP1 help to lose weight. We discussed possible SE of nausea, vomiting, bloating and constipation. Showed how to use self injection pen. All questions were answered to satisfaction. Will plan to start Mounjaro or Zepbound depending on lab results. Not available 08/07/2024 08:27:48 09/10/2024 09/10/2024 Patient reports she has not gotten her medication yet from the pharmacy. She reports her name may be Emiliano in the Medicaid system. Will see if we can figure out what is going on and resubmit information to get approval. Not available 09/10/2024 16:30:55 12/10/2024 12/10/2024 Patient here today to discuss increasing her Zepbound. She is down 6 pounds but has noticed that she has a lot of reflux now. Will check for Hpylori and then will send in Omeprazole to help. Not available 12/10/2024 12:40:45 01/14/2025 01/14/2025 Patient here today to discuss her weight loss and the Zepbound. Her negative side effects have diminished and she is feeling good on the medication and has lost weight. Will increase dosing today and see how she does. She will let us know how she does. Not available 01/14/2025 17:19:29 Plan of Treatment Reminders Order Date Submit Date Provider Last Modified By Organization Details Last Modified Time Details Appointments RECHECK 2024 03:00P M GAYLERodrigue MONTGOMERY, SALVAGER HELPER Not available Not available Not available Lab helicobac ter pylori, culture, unspecifi ed specimen 2024 025 [email or web address], [address] [facility] [address], [place], [address], 12/17/2024 10:22:04 CMP, serum or plasma 2024 025 [facility], [address], [address], [place], [address], 08/06/2024 16:52:04 CBC 2024 025 [facility], [address], [address], [place], [address], 08/06/2024 15:33:56 hemoglobi n A1C/hemog lobin total, QN, blood 2024 025 [facility], [address], [address], [place], [address], 08/06/2024 16:44:23 Referral None recorded. Procedures None recorded. Surgeries None recorded. Imaging None recorded. Medication Orders Zepbound 10 mg/0.5 mL subcutane ous pen injector 2024 025 [email or web address] [facility], [address], [place], [address], 01/15/2025 12:10:00 omeprazol e 20 mg capsule,d elayed release 2024 025 [facility] [address], [place], [address], 12/10/2024 12:18:12 Zepbound 7.5 mg/0.5 mL subcutane ous pen injector 2024 025 [facility], [address], [place], [address], 01/14/2025 16:27:38 Zepbound 5 mg/0.5 mL subcutane ous pen injector 2024 025 [email or web address] [facility], [address], [place], [address], 12/10/2024 12:10:44 Patient TargetsNo targets recorded. Patient Instructions Encounter Date Encounter Id Patient Instructions Last Modified By Organization Details Last Modified Time 08/06/2024 [id number] Call or return for questions or concerns. Not available 08/07/2024 08:27:52 11/12/2024 [id number] Call or return for questions or concerns. Not available 11/12/2024 12:19:58 12/10/2024 [id number] Call or return for questions or concerns. Not available 12/10/2024 12:40:54 01/14/2025 [id number] Call or return for questions or concerns. Not available 01/14/2025 16:44:50 Reason for Referral None Reported. Results Created Date Observation Date Name Description Value Unit Range Abnormal Flag Note LastModifiedBy Organization Detail LastModifiedTime 08/07/1908/06/2024 CBC WBC 9.3 x10 4.0-10 .5 Not Available [facility] [address] [facility] 1, [place], [address], 08/06/2024 15:33:56 08/07/19 25 08/06/2024 CBC RBC 4.73 x10 3.50-5 .50 Not Available [facility] [address] [facility] 1, [place], [address], 08/06/2024 15:33:56 08/07/19 25 08/06/2024 CBC HGB 13.4 g/dL 12.0-1 6.0 Not Available [facility] [address] [facility] 1, [place], [address], 08/06/2024 15:33:56 08/07/19 25 08/06/2024 CBC HCT 40.9 % 37.0-4 7.0 Not Available [facility] [address] [facility] 1, [place], [address], 08/06/2024 15:33:56 08/07/19 25 08/06/2024 CBC MCV 86.4 fL 80.0-9 9.9 Not Available [facility] [address] [facility] 1, [place], [address], 08/06/2024 15:33:56 08/07/19 25 08/06/2024 CBC MCH 28.3 pg 27.0-3 2.0 Not Available [facility] [address] [facility] 1, [place], [address], 08/06/2024 15:33:56 08/07/19 25 08/06/2024 CBC MCHC 32.7 g/dL 32.0-3 6.0 Not Available [facility] [address] [facility] 1, [place], [address], 08/06/2024 15:33:56 08/07/19 25 08/06/2024 CBC RDW 14.8 % 11.5-1 4.5 high Not Available [facility] [address] [facility] 1, [place], [address], 08/06/2024 15:33:56 08/07/19 25 08/06/2024 CBC plt 358.4 x10 140.0- 451.0 Not Available [facility] [address] [facility] 1, [place], [address], 08/06/2024 15:33:56 08/07/19 25 08/06/2024 CBC lymphocytes % 29.3 % 20.0-5 0.0 Not Available [facility] [address] [facility] [address], [place], [address], 08/06/2024 15:33:56 08/07/19 25 08/06/2024 CBC granulcytes % 56.0 % 30.0-7 0.0 Not Available [facility] [address] [facility] [address], [place], [address], 08/06/2024 15:33:56 08/07/19 25 08/06/2024 CBC monocytes % 8.5 % 2.0-16 .0 Not Available [facility] [address] [facility] [address], [place], [address], 08/06/2024 15:33:56 08/07/19 25 08/06/2024 CBC granulcytes# 5.2 x10 Not Simona ilable [facility] [address] [facility] [address], [place], [address], 08/06/2024 15:33:56 08/07/19 25 08/06/2024 CBC lymphocytes # 2.7 x10 Not Available [facility] [address] [facility] [address], [place], [address], 08/06/2024 15:33:56 08/07/19 25 08/06/2024 CBC monocytes # 0.8 x10 Not Avai lable [facility] [address] [facility] [address], [place], [address], 08/06/2024 15:33:56 08/07/19 25 08/06/2024 HBA1C hemaglobin A1C 5.7 4.2-6. 5 normal Not Available [facility] [address] [facility] 1, [place], [address], 08/06/2024 16:44:23 08/07/19 25 08/06/2024 CMP (FEMA LE) glucose 92.0 mg/dL 60.0-9 9.0 Not Available [facility] [address] [facility] 1, [place], [address], 08/06/2024 16:52:04 08/07/19 25 08/06/2024 CMP (FEMA LE) BUN (blood urea nitrogen) 13.0 mg/dL 10.0-2 6.0 Not Available [facility] [address] [facility] 1, [place], [address], 08/06/2024 16:52:04 08/07/19 25 08/06/2024 CMP (FEMA LE) creatinine (serum) 0.7 mg/dL 0.4-1. 5 Not Available [facility] [address] [facility] 1, [place], [address], 08/06/2024 16:52:04 08/07/19 25 08/06/2024 CMP (FEMA LE) BUN/creatini ne ratio 18.57 ratio Not Available [facility] [address] [facility] 1, [place], [address], 08/06/2024 16:52:04 08/07/19 25 08/06/2024 CMP (FEMA LE) eGFR calculated 104.4 Not Available [facility] [address] [facility] 1, [place], [address], 08/06/2024 16:52:04 08/07/19 25 08/06/2024 CMP (FEMA LE) total protein 8.4 g/dL 6.0-8. 5 Not Available [facility] [address] [facility], [place], [address], 08/06/2024 16:52:04 08/07/19 25 08/06/2024 CMP (FEMA LE) total bilirubin 0.4 mg/dL 0.2-1. 3 Not Available [facility] [address] [facility] [address], [place], [address], 08/06/2024 16:52:04 08/07/19 25 08/06/2024 CMP (FEMA LE) albumin 4.7 g/dL 3.5-5. 5 Not Available [facility] [address] [facility] [address], [place], [address], 08/06/2024 16:52:04 08/07/19 25 08/06/2024 CMP (FEMA LE) globulin 3.7 calc Not Available [facility] [address] [facility] 1, [place], [address], 08/06/2024 16:52:04 08/07/19 25 08/06/2024 CMP (FEMA LE) AST (SGOT) 23.0 U/L 0.0-46 .0 Not Available [facility] [address] [facility] 1, [place], [address], 08/06/2024 16:52:04 08/07/19 25 08/06/2024 CMP (FEMA LE) altv (SGPT) 23.0 U/L 13.0-6 9.0 normal Not Available [facility] [address] [facility], [place], [address], 08/06/2024 16:52:04 08/07/19 25 08/06/2024 CMP (FEMA LE) A/G ratio 1.3 ratio Not Available [facility] [address] [facility] 1, [place], [address], 08/06/2024 16:52:04 08/07/19 25 08/06/2024 CMP (FEMA LE) ALP phos 114.0 U/L 30.0-1 40.0 normal Not Available [facility] [address] [facility] 1, [place], [address], 08/06/2024 16:52:04 08/07/19 25 08/06/2024 CMP (FEMA LE) calcium 9.7 mg/dL 8.4-10 .5 Not Available [facility] [address] [facility] 1, [place], [address], 08/06/2024 16:52:04 08/07/19 25 08/06/2024 CMP (FEMA LE) sodium 139.0 mmol/ L 136.0- 145.0 Not Available [facility] [address] [facility] 1, [place], [address], 08/06/2024 16:52:04 08/07/19 25 08/06/2024 CMP (FEMA LE) potassium 4.1 mmol/ L 3.5-5. 1 Not Available [facility] [address] [facility] 1, [place], [address], 08/06/2024 16:52:04 08/07/19 25 08/06/2024 CMP (FEMA LE) chloride 104.0 mmol/ L 98.0-1 10.0 normal Not Available [facility] [address] [facility] 1, [place], [address], 08/06/2024 16:52:04 08/07/19 25 08/06/2024 CMP (FEMA LE) C02 24.0 mmol/ L 22.0-3 1.0 Not Available [facility] [address] [address], [place], [address], 08/06/2024 16:52:04 08/07/19 25 08/06/2024 CMP (FEMA LE) anion gap 11.0 calc Not Available [facility] [address] [facility] [address], [place], [address], 08/06/2024 16:52:04 08/07/19 25 08/06/2024 CMP (FEMA LE) osmolality 286.9 calc Not Available [facility] [address] [facility] [address], [place], [address], 08/06/2024 16:52:04 Result Notes None recorded. Problems Name Problem SNOMED Code Status Onset Date Resolution Date Notes Provider Name and Address Organization Details Recorded Time Gestational diabetes mellitus 34505369 Active 2022 ONIEL jung [facility] 5 13:46:21 Gestational diabetes mellitus 98469298 Completed 2022 ONIEL jung [facility] 5 13:46:21 Morbid obesity 909152386 Active 2024 GAYLE MONTGOMERY, [facility] [address] [place], [address], [facility] 5 16:31:15 Problem Notes None recorded. Procedures Surgical History Date Name Laterality Status Provider Name and Address Organization Details Recorded Time 3 Date of Last Pap Smear completed ANTOINETTE STANTON [facility] 03/07/2023 15:32:55 section completed ONIEL DELGADO [facility] 08/06/2024 13:45:53 Imaging Results None recorded. Procedure Notes None recorded. Medical Equipment None Reported. Allergies No known drug allergies Medications Name Sig Start Date Stop Date Status Note LastModified by Organization Details LastModified Time trazodone 50 mg tablet Take 1 tablet every day by oral route at bedtime. active Not Available Not Available No t Available hydrocodo ne 5 mg-acetam inophen 325 mg tablet every six hours, as needed 12/18 completed Dispense d through ER Dept. on 12/02/13; 0; Recorded 12/03/19 14 12:47PM by Belle Guerrero RN, Historic al Summary; Not Available Not Available Not Available meloxicam 15 mg tablet TAKE 1 TABLET BY MOUTH ONCE DAILY FOR 30 DAYS active Not Available Not Available No t Available Zofran 4 mg tablet every six hours, as needed 12/18 completed Dispense d through ER on 08/14/16; 0; Recorded 08/23/19 17 10:47AM by Belle Guerrero RN, Historic al Summary; Not Available Not Available Not Available cephalexi n 500 mg capsule TAKE 1 CAPSULE BY MOUTH THREE TIMES DAILY 12/10 completed Not Available Not Available Not Available omeprazol e 20 mg capsule,d elayed release TAKE 1 CAPSULE BY MOUTH ONCE DAILY active Not Available Not Available No t Available Trimethop rim-SMZ DS 160 mg-800 mg tablet every twelve hours X 7 days 12/18 completed Dispense d through ER on 08/14/16; 0; Recorded 08/23/19 17 10:49AM by Belle Guerrero RN, Historic al Summary; Not Available Not Available Not Available Zoloft 100 mg tablet Take 1 tablet every day by oral route. active Not Available Not Available No t Available ondansetr on 4 mg disintegr ating tablet Place 2 tablets twice a day by translin gual route. 03/21 completed Not Available Not Available Not Available Sprintec (28) 0.25 mg-0.035 mg tablet daily 12/18 completed Recorded 10/31/19 14 3:21PM by Alyson Irby MD, Office Visit; Refill Quantity : 30; Tablet; Not Available Not Available Not Available bupropion HCl XL 150 mg 24 hr tablet, extended release TAKE 1 TABLET BY MOUTH IN THE MORNING active Not Available Not Available No t Available naproxen every twelve hours, as needed 12/18 completed Dispense d through the ER Dept. on 12/02/13; 0; Recorded 12/03/19 14 12:48PM by Belle Guerrero RN, Historic al Summary; Not Available Not Available Not Available 02/11 completed Not Available Not Available Not Available Zepbound 10 mg/0.5 mL subcutane ous pen injector INJECT 10 MG SUB-Q WEEKLY 2024 active Not Available Not Available Not Avai lable Zepbound 5 mg/0.5 mL subcutane ous pen injector INJECT 5 MG SUBCUTAN EOUSLY ONCE WEEKLY FOR 28 DAYS 12/10 completed Pharmacy informed they will need to run Zepbound under the last name Emiliano for it to go through Medicaid . Approval done on 09/12/24 Not Available Not Available Not Available Zepbound 2.5 mg/0.5 mL subcutane ous pen injector INJECT 2.5MG SUBCUTAN EOUSLY ONCE WEEKLY FOR OBESITY 12/10 completed Not Available Not Available Not Available Zepbound 7.5 mg/0.5 mL subcutane ous pen injector INJECT 7.5 MG SUBCUTAN EOUSLY EVERY 7 DAYS 01/14 completed Not Available Not Available Not Available Vitals Date Recorded Body height Body mass index (BMI) Body weight Oxygen saturation Oxygen saturation in Arterial blood by Pulse oximetry Heart rate Respiratory rate Systolic And Diastolic Provider Name and Address Organization Details Last Updated DateTime 5 162.56 cm 45.3 kg/m2 947599. 39 g 97 % 97 % 88 /min 22 /min 124/78 mm[Hg] ONIEL [facility] 5 13:43:23 Date Recorded Body height Body mass index (BMI) Body weight Oxygen saturation Oxygen saturation in Arterial blood by Pulse oximetry Heart rate Respiratory rate Systolic And Diastolic Provider Name and Address Organization Details Last Updated DateTime 5 162.56 cm 45.8 kg/m2 667369. 16 g 98 % 98 % 90 /min 20 /min 118/80 mm[Hg] ONIEL [facility] 5 16:07:47 Date Recorded Body height Body mass index (BMI) Body weight Oxygen saturation Oxygen saturation in Arterial blood by Pulse oximetry Heart rate Respiratory rate Systolic And Diastolic Provider Name and Address Organization Details Last Updated DateTime 5 162.56 cm 46.2 kg/m2 887637. 35 g 97 % 97 % 92 /min 20 /min 124/80 mm[Hg] ONIEL DELGADO [facility] 5 11:53:07 Date Recorded Body height Body mass index (BMI) Body weight Oxygen saturation Oxygen saturation in Arterial blood by Pulse oximetry Heart rate Respiratory rate Systolic And Diastolic Provider Name and Address Organization Details Last Updated DateTime 5 162.56 cm 45.1 kg/m2 140862. 79 g 98 % 98 % 106 /min 22 /min 126/88 mm[Hg] ONIEL DELGADO [facility] 5 12:10:12 Date Recorded Body height Body mass index (BMI) Body weight Body temperature Respiratory rate Oxygen saturation Oxygen saturation in Arterial blood by Pulse oximetry Heart rate Systolic And Diastolic Provider Name and Address Organization Details Last Updated DateTime 5 162.56 cm 43.3 kg/m2 177298. 28 g 98.1 [degF] 17 /min 97 % 97 % 99 /min 120/80 mm[Hg] Annamariarodrigue Rangel [facility] 5 16:04:41 Social History Question Answer Notes LastModified by [email or web address] Details LastModified Time Tobacco Smoking Status Current Every [facility] 08/30/2022 11:39:06 What Is Your Level Of Caffeine Consumption? Moderate [email or web address] Information not available 08/06/2024 What Was The Date Of Your Most Recent Tobacco Screening? 02/12/2024 [email or web address] Information not available 02/12/2024 How Much Tobacco Do You Smoke? 0.5 PPD [email or web address] Information not available 02/06/2023 Sex: Unknown Functional Status Question Answer Note LastModified by [employer] Details LastModified Time Do you use any illicit or recreational drugs? No [email or web address] Information not available 09/28/2022 What is your level of alcohol consumption? None [email or web address] Information not available 09/28/2022 Are you currently employed? Yes [employer] [email or web address] Information not available 08/06/2024 Are you able to walk independently without assistance or assistive devices? YESWOREST [email or web address] Information not available 08/06/2024 Are you able to care for yourself independently? Yes [email or web address] Information not available 08/06/2024 Mental Status None recorded. Family History Relationship Description Onset Age of this Age Resolved Age Notes LastModified by Organization Details LastModified Time Father Type 2 diabetes mellitus Not available 2022 15:06:01 Mother Type 1 diabetes mellitus Not available 2022 15:06:10 Medical History Condition Response Coronary Artery Disease N Other N Gout N Kidney Stones N Blood Diseases N Hyperthyroidism N Breast Cancer N Blood Transfusion N Depression N Hypothyroidism N Lung Disease N COPD N Defects or Inherited Disease N Developmental or Behavioral Disorders N Breast Problem N Difficulty Swallowing N Anesthesia Complications N Meniere's disease N Anxiety Disorder N Muscle, Joint, or Bone Problems N Vision or Eye Problems N Arthritis N Polyps N Infertility N Cancer N Varicosities N Stroke N Endometriosis N Bladder or Kidney Problems N High Cholesterol N Liver Disease N Fibromyalgia N Headaches N Kidney Disease N Allergies/Hayfever N Heart Problems N Ear or Hearing Problems N Hospitalizations N Thyroid Problems N GI Problems N ADD/ADHD N Skin Problems N Eating Disorder N Anemia N Constipation N Mental Illness N Ovarian Cancer N Diabetes N Bedwetting N Seizures/Epilepsy N Tuberculosis N Eczema N Diverticulitis N Abuse/Domestic Violence N Asthma N Reflux/GERD N Hepatitis N Heart Disease N Pulmonary Embolism N Pre-Eclampsia N Hypertension N Chronic Ear Infections N Osteoporosis N Chicken Pox N Autism Spectrum Disorder (ASD) N Thrombophilias N Gynecological History Statement/Question Response Abnormal Pap N Date of Last Pap Smear 09/29/2022 Sexually Active? Y Obstetrics History GPAL:G 2 P 2 0 0 2 Type Value Full Term 2 Living 2 Total 2 Immunizations Vaccine Type Date Status Note Provider Nam e and Address Organization Details Recorded Time Tdap 03/21/2023 completed Scarlett jung [facility] 02/12/2024 18:07:08 Past Encounters Encounter ID Performer Location Encounter Start Date Encounter Closed Date Diagnosis/Indication Diagnosis SNOMED-CT Code Diagnosis ICD10 Code Diagnosis IMO Codes Diagnosis Note [id number] Alyson Irby MD [facility] ([facility]) [address] [place] [address] 08/30/2022 11:18:26 08/30/2022 12:12:33 Amenorrhea 95863387 N91.2 test positive 985816063 Z32.01 Tobacco user 664288189 Z 72.0 I discussed risks of smoking in , including but not limited to: LBW, premature delivery and increased risk of miscarriag e and SIDS. I advised complete cessation [id number] Alyson Irby MD [facility] ([facility]) [address] [place] [id number] 09/06/2022 11:47:44 09/06/2022 12:30:10 [id number] CHA CARLSON PA-C [facility] ([facility]) [address] [place] [id number] 5 09/12/2022 15:12:59 09/12/2022 20:54:50 Umbilical hernia 194227916 K42.9 reducible in office. encouraged minimal lifting and straining. educated how to reduce on own. If she feels it is not reducible and becomes more painful, swollen or red then RTC for recheck or to the ER. [id number] Alyson Irby MD [facility] ([facility]) [address] [place] [id number] 5 09/28/2022 15:20:29 09/28/2022 18:51:36 Normal in multigravida 5269524174 38298 Z34.81 Gestation period, 9 weeks 096389 Z3A.09 Reducible umbilical hernia 728997299 K42.9 May actually improve as uterus grows and pushes bowel/omen deion out of the way. Recommend waiting until after delivery for any type of repair. [id number] Alyson Irby MD [facility] ([facility]) [address] [place] [id number] 5 11/15/2022 11:19:03 11/15/2022 15:49:51 Gestation period, 16 weeks 70881673 Z3A.16 Normal pre gnancy in multigravida 5575505985 26449 Z34.82 [id number] Alyson Irby MD [facility] ([facility]) [address] [place] [id number] 5 12/12/2022 14:01:31 12/12/2022 19:51:20 [id number] Alyson Irby MD [facility] ([facility]) [address] [place] [id number] 5 12/18/2022 14:02:28 12/18/2022 15:22:26 Gestation period, 21 weeks 32798648 Z3A.21 Normal pre gnancy in multigravida 0598791916 03869 Z34.82 Nausea and vomiting 1693 1999 R11.2 [id number] Alyson Irby MD [facility] ([facility]) [address] [place] [id number] 5 01/22/2023 14:50:50 01/22/2023 17:15:35 Gestation period, 26 weeks 64854394 Z3A.26 Normal pre gnancy in multigravida 1687837817 76306 Z34.82 [id number] Alyson Irby MD [facility] ([facility]) [address] [place] [id number] 5 02/06/2023 14:23:49 02/06/2023 16:40:54 Gestation period, 28 weeks 89159045 Z3A.28 Normal pre gnancy in multigravida 3980128530 04758 Z34.82 [id number] Alyson Irby MD [facility] ([facility]) [address] [place] [id number] 5 2023 15:13:28 2023 16:43:40 Gestation period, 30 weeks 11583538 Z3A.30 High risk 4720 0007 O09.93 GDM Gestationa l diabetes mellitus 62627769 O24.419 I reviewed diabetic diet and when to check sugars. pt was given a glucose log to bring to her next visit. we discussed the risks of uncontroll ed dm in . Counseling for sterilization done 4070299444 9103 Z30.09 discussed risks and benefits of tubal. m-caid form signed. [id number] Alyson Irby MD [facility] ([facility]) [address] [place] [id number] 5 03/05/2023 15:20:21 03/05/2023 17:45:20 [id number] Alyson Irby MD [facility] ([facility]) [address] [place] [id number] 5 03/07/2023 15:20:14 03/07/2023 15:47:38 Gestation period, 32 weeks 8305886 Z3A.32 Gestationa l diabetes mellitus 03070082 O24.419 High risk 4720 0007 O09.93 GDM [id number] Alyson Irby MD [facility] [place]) [address] [place] [address] 08913-542 5 03/21/2023 14:52:39 03/21/2023 15:54:32 Gestation period, 34 weeks [id number] Z3A.34 Gestationa l diabetes mellitus 33828065 O24.419 Pt was instructed to do 4 times daily blood sugars every day. Bring log to next visit. High risk 4720 0007 O09.93 GDM Fundal hei ght high for dates [id number] O34.599 had f/u growth and LATOYA in 2 weeks [id number] Alyson Irby MD [facility] ([facility] [place]) [address] [place] [address] [phone] 5 04/05/2023 16:41:22 04/10/2023 13:18:56 Gestational diabetes mellitus 07423655 O24.419 Pt was instructed to do 4 times daily blood sugars every day. Bring log to next visit. High risk 4720 0007 O09.93 GDM. pt did not bring her log today. by report her sugars seem controlled . 04/05/23 Fundal hei ght high for dates [id number] O34.599 u/s revealed EFW >97%. Gestation period, 36 weeks 78060094 Z3A.36 Breech presentation 6096 002 O32.1XX9 I discussed risks/bene fits/ alternativ es of EFV v w pt in detail. during her visit we did not have u/s results... .but with macrosomia I would recommend for breech. macr osomia suspected [id number] O36.63X0 on u/s today [id number] Alyson Irby MD [facility] ([facility] [place]) [address] [place] [address] [phone] 5 04/05/2023 16:41:45 04/05/2023 18:53:22 [id number] Alyson Irby MD [facility] ([facility] [place]) [address] [place] [address] [phone] 5 04/12/2023 14:58:54 04/15/2023 13:28:58 Gestational diabetes mellitus 08489736 O24.419 Pt was instructed to do 4 times daily blood sugars every day. Bring log to next visit. 04/05/23. pt did not bring her log. cont 4 times daily testing and bring log to next visit. 2xweekly NST. 04/12/23 High risk 4720 0007 O09.93 GDM. pt did not bring her log today. by report her sugars seem controlled . 04/05/23 Fundal hei ght high for dates 930202183 O34.599 u/s revealed EFW >97%. 04/05/2023 Breech presentation 6096 002 O32.1XX9 I discussed risks/bene fits/ alternativ es of EFV v w pt in detail. during her visit we did not have u/s results... .but with macrosomia I would recommend for breech. 04/05/2023 still breech by bedside u/s. pt is agreeable to . 04/12/23 macr osomia suspected [id number] O36.63X0 on u/s today 04/05/2023 Gestation period, 37 weeks 90465904 Z3A.37 [id number] Alyson Irby MD [facility] ([facility] [place]) [address] [place] [address] [phone] 5 04/19/2023 15:41:38 04/19/2023 16:27:24 Gestational diabetes mellitus 27024674 O24.419 Pt was instructed to do 4 times daily blood sugars every day. Bring log to next visit. 04/05/23. pt did not bring her log. cont 4 times daily testing and bring log to next visit. 2xweekly NST. 04/12/23 High risk 4720 0007 O09.93 GDM. pt did not bring her log. by report her sugars seem controlled . 04/05/23 Fundal hei ght high for dates 245602614 O34.599 u/s revealed EFW >97%. 04/05/2023 Breech presentation 6096 002 O32.1XX9 I discussed risks/bene fits/ alternativ es of EFV v w pt in detail. during her visit we did not have u/s results... .but with macrosomia I would recommend for breech. 04/05/2023 still breech by bedside u/s. pt is agreeable to . 04/12/23 scheduled for 04/23. Pt given pre-op instructio ns in writing 04/19/23 macr osomia suspected [id number] O36.63X0 on u/s 04/05/2023 Gestation period, 38 weeks 01965845 Z3A.38 [id number] SKYLER CABRERA [facility] ([facility] [place]) [address] [place] [address] [phone] 5 02/12/2024 18:04:28 02/12/2024 18:35:01 Pain in right foot [id number] 92786 M79.671 Discussed possible metatarsal merissa with patient. She will wrap her foot with an JOE bandage for compressio n, elevate the foot when sitting, apply an ice pack for 10 minutes 2-3 times a day and take the mobic daily. If no improvemen t after 3-4 weeks then f/u with PCP [id number] GAYLE MONTGOMERY [facility] ([facility] [place]) [address] [place] [address] [phone] 5 08/06/2024 12:58:10 08/06/2024 14:06:41 Body mass index 40+ - severely obese [id number] Z68.42 Discussed diet and exercise. Past pregn iman history of gestational diabetes mellitus 104965850 Z86.32 [id number] GAYLE MONTGOMERY [facility] ([facility] [place]) [address] [place] [address] [phone] 5 09/10/2024 15:50:28 09/10/2024 16:37:40 Morbid obesity 893299498 E66.01 [id number] Zepbound will be resent. [id number] GAYLE MONTGOMERY [facility] ([facility] [place]) [address] [place] [address] 11/12/2024 11:21:09 11/12/2024 12:46:31 Morbid obesity 517443641 E66.01 [id number] Zepbound will be resent. [id number] GAYLE MONTGOMERY [facility] ([facility] [place]) [address] [place] [address] 12/10/2024 11:19:26 12/10/2024 12:57:53 Morbid obesity 520343002 E66.01 [id number] Gastroesop hageal reflux disease 513029167 K21.9 [id number] GAYLE MONTGOMERY [facility] ([facility] [place]) [address] [place] [address] 01/14/2025 15:55:22 01/19/2025 15:32:48 Morbid obesity 347512194 E66.01 11900 Health Concerns Section Related Observation LastModified by Organization Detai ls LastModified Time None Recorded Concern Status LastModified by Organization Details LastModified Time None Recorded Advance Directives Directive None Recorded Payers Insurance Date Sequence Insurance Name Policy Number Policy Navas Covered Member ID Navas Member ID Guarantor Name 02/06/2023 [place] [facility] (INSTITUTIONAL ) Cha Kaiser [id number] Cha Sparrow 01/19/2025 1 [place] [id number] Cha Cummings [id number] Cha Sparrow 02/06/2023 1 [place] Cha Kaiser [id number] Cha Sparrow Notes Date Note Type Note Provider Name and Address Organization Details Recorded Time 08/06/2024 text/html ObesityReported by PatientHPIFor context, patient reportsmaternal gestational diabetes. For comorbidities, patient reportsinsulin resistance. For lifestyle changes, patient reportsmotivated to make lifestyle changes. For nutrition, patient reportslow-carbohydrat e diet yes. For medication education, patient reportsverbalizes understanding of potential medication side effects yes,verbalizes understanding of medication administration yes, andverbalizes understanding of role of diet as primary therapy yes. GAYLERodrigue MONTGOMERY, [facility] [address] [place], [address], [facility] [place] 08/07/2024 08:28:17 11/12/2024 text/html ObesityReported by PatientHPIFor lifestyle changes, patient reportsmotivated to continue lifestyle changes,losing weight, andexercising more (trying to exercise more). For medication education, patient reportsverbalizes understanding of potential medication side effects yes,verbalizes understanding of medication administration yes, andverbalizes understanding of role of diet as primary therapy yes. For nutrition, (working on portion control). GAYLERodrigue MONTGOMERY, [address], [address], [facility] 11/12/2024 12:20:54 12/10/2024 text/html Reflux/GERDRepor joann by PatientHPIFor severity, patient reportsworseningandmod erate. For aggravating factors, patient reportslying downandworsened by food. For duration, patient reportspresent for 1-6 months. For onset/timing, patient reportsdaily. GAYLE MURPHYTES, [address], [address], [facility] 12/10/2024 12:42:10 01/14/2025 text/html Reflux/GERDRepor joann by PatientHPIFor severity, patient reportsworseningandmod erate. For aggravating factors, patient reportslying downandworsened by food. For duration, patient reportspresent for 1-6 months. For onset/timing, patient reportsdaily.ROS as noted in the HPI Follow up for increase on her medication GAYLE MURPHYTES, [facility] [address] [place], [address], [facility] 01/14/2025 17:23:36 OBGyn Episode Ob Episode Information Episode Created Date Number of Fetuses Patient Bloodtype Patient rh Status Prepregnancy Weight lbs Domestic Partner Domestic Partner Phone Father Name Hand Etcher Helper Status 04/26/20 23 1 O Positive Ly Arshad CLOSED Fetus Data First Name Last Name Admitted to NICU Weight (g) Sex Living Outcome Pediatric Complications Fetus ID Race Codes Race Delivery Type Iris Brisc oe 4224.07 55 F true Full Term Oxygen following 662 Problems Problem Notes , VAVD x 1, CLAUS 04/29/23 by 6w3d u/s Problem Name Start Date End Date Resolution Snomed Code Not e Gestational diabetes mellitus 02/13/2023 [id number] Claus Calculation Initial Claus Date Initial Exam Date Initial Exam Provider Initial Ultrasound Date Last Menstrual Period Date Ultra Sound Weeks Gestation 04/29/2023 08/30/2022 07/20/2022 6 Eighteen To Twenty Week Claus Update Ultra Sound Date Fundal Height At Umbil Quickening Date Ultra Sound Latest Weeks Gestation Final Claus Confirmed By Final Claus Confirmed Date Final Claus Date Ultra Sound Latest Days Gestation 0 [email or web address] 12/18/2022 04/29/20 23 0 Pre- Flowsheet Flowsheet Date 08/30/2022 Zambrano Score Blood Edema Fundus Height Fundus Units Glucose Ketones Leukocytes Nitrite Labor Signs Protein Cervic Dilation Cervic Effacement Cervic Station Type Weight in lbs Pre/Post Dialysis Refused Weight 241.89413406773 BP Diastolic BP Location Tested BP Systolic BP Type 72 115 Fetus Heart Rate Present Fetus Movement Comments Flowsheet Date 09/06/2022 Zambrano Score Blood Edema Fundus Height Fundus Units Glucose Ketones Leukocytes Nitrite Labor Signs Protein Cervic Dilation Cervic Effacement Cervic Station Type Weight in lbs Pre/Post Dialysis Refused BP Diastolic BP Location Tested BP Systolic BP Type Fetus Heart Rate Present Fetus Movement Comments Flowsheet Date 09/12/2022 Zambrano Score Blood Edema Fundus Height Fundus Units Glucose Ketones Leukocytes Nitrite Labor Signs Protein Cervic Dilation Cervic Effacement Cervic Station Type Weight in lbs Pre/Post Dialysis Refused With clothes 243.866554151675 BP Diastolic BP Location Tested BP Systolic BP Type 76 R arm 128 sitting Fetus Heart Rate Present Fetus Movement Comments Flowsheet Date 09/28/2022 Zambrano Score Blood Edema Fundus Height Fundus Units Glucose Ketones Leukocytes Nitrite Labor Signs Protein Cervic Dilation Cervic Effacement Cervic Station none trace Negative neg Type Weight in lbs Pre/Post Dialysis Refused With clothes 244.656109272374 BP Diastolic BP Location Tested BP Systolic BP Type 78 R arm 132 sitting Fetus Heart Rate Present Fetus Movement Comments final CLAUS 04/29/23 by 6w3d u /s. lb Flowsheet Date 11/15/2022 Zambrano Score Blood Edema Fundus Height Fundus Units Glucose Ketones Leukocytes Nitrite Labor Signs Protein Cervic Dilation Cervic Effacement Cervic Station none 3+ Negative trace Type Weight in lbs Pre/Post Dialysis Refused With clothes 237.340780097829 BP Diastolic BP Location Tested BP Systolic BP Type 80 L arm 124 sitting Fetus Heart Rate Present A 145 Fetus Movement Comments Flowsheet Date 12/12/2022 Zambrano Score Blood Edema Fundus Height Fundus Units Glucose Ketones Leukocytes Nitrite Labor Signs Protein Cervic Dilation Cervic Effacement Cervic Station Type Weight in lbs Pre/Post Dialysis Refused BP Diastolic BP Location Tested BP Systolic BP Type Fetus Heart Rate Present Fetus Movement Comments Flowsheet Date 12/18/2022 Zambrano Score Blood Edema Fundus Height Fundus Units Glucose Ketones Leukocytes Nitrite Labor Signs Protein Cervic Dilation Cervic Effacement Cervic Station 21 trace trace Negative neg Type Weight in lbs Pre/Post Dialysis Refused With clothes 231.032889022974 BP Diastolic BP Location Tested BP Systolic BP Type 78 L arm 122 sitting Fetus Heart Rate Present A 145 Fetus Movement Comments hilary u/s wnl (20w3d CLAUS 04/07 07/27) Baby girl, unk control after baby. Flowsheet Date 01/22/2023 Zambrano Score Blood Edema Fundus Height Fundus Units Glucose Ketones Leukocytes Nitrite Labor Signs Protein Cervic Dilation Cervic Effacement Cervic Station 27 none 2+ Negative neg Type Weight in lbs Pre/Post Dialysis Refused With clothes 246.529484726529 BP Diastolic BP Location Tested BP Systolic BP Type 74 R arm 120 sitting Fetus Heart Rate Present A 146 Fetus Movement Comments 15lbs+, gluc next, kick coun ts gone over Flowsheet Date 02/06/2023 Zambrano Score Blood Edema Fundus Height Fundus Units Glucose Ketones Leukocytes Nitrite Labor Signs Protein Cervic Dilation Cervic Effacement Cervic Station 30 4+ none Negative neg Type Weight in lbs Pre/Post Dialysis Refused With clothes 249.681195871922 BP Diastolic BP Location Tested BP Systolic BP Type 76 L arm 122 sitting Fetus Heart Rate Present A 125 Fetus Movement A Yes Comments Baby girl Iris, peds Flowsheet Date 02/08/2023 Zambrano Score Blood Edema Fundus Height Fundus Units Glucose Ketones Leukocytes Nitrite Labor Signs Protein Cervic Dilation Cervic Effacement Cervic Station Type Weight in lbs Pre/Post Dialysis Refused BP Diastolic BP Location Tested BP Systolic BP Type Fetus Heart Rate Present Fetus Movement Comments Faxed records to OB L/D Flowsheet Date 2023 Zambrano Score Blood Edema Fundus Height Fundus Units Glucose Ketones Leukocytes Nitrite Labor Signs Protein Cervic Dilation Cervic Effacement Cervic Station 31 none trace Negative neg Type Weight in lbs Pre/Post Dialysis Refused With clothes 248.180216722194 BP Diastolic BP Location Tested BP Systolic BP Type 78 R arm 128 sitting Fetus Heart Rate Present A 145 Fetus Movement Comments dx GDM, tubal conssent gee d, Peds , control after baby born, Flowsheet Date 03/05/2023 Zambrano Score Blood Edema Fundus Height Fundus Units Glucose Ketones Leukocytes Nitrite Labor Signs Protein Cervic Dilation Cervic Effacement Cervic Station Type Weight in lbs Pre/Post Dialysis Refused BP Diastolic BP Location Tested BP Systolic BP Type Fetus Heart Rate Present Fetus Movement Comments Flowsheet Date 03/07/2023 Zambrano Score Blood Edema Fundus Height Fundus Units Glucose Ketones Leukocytes Nitrite Labor Signs Protein Cervic Dilation Cervic Effacement Cervic Station 36 none trace Negative neg Type Weight in lbs Pre/Post Dialysis Refused With clothes 250.962279257109 BP Diastolic BP Location Tested BP Systolic BP Type 80 L arm 122 sitting Fetus Heart Rate Present A 140 Fetus Movement Comments diet controlled GDM, cont 4 x daily sugars Flowsheet Date 03/21/2023 Zambrano Score Blood Edema Fundus Height Fundus Units Glucose Ketones Leukocytes Nitrite Labor Signs Protein Cervic Dilation Cervic Effacement Cervic Station 40 none trace trace Type Weight in lbs Pre/Post Dialysis Refused With clothes 249.741193364675 BP Diastolic BP Location Tested BP Systolic BP Type 75 L arm 135 sitting Fetus Heart Rate Present A 125 Fetus Movement Comments GDM, TDAP RX given today. Flowsheet Date 04/05/2023 Zambrano Score Blood Edema Fundus Height Fundus Units Glucose Ketones Leukocytes Nitrite Labor Signs Protein Cervic Dilation Cervic Effacement Cervic Station 42 none trace Negative neg Type Weight in lbs Pre/Post Dialysis Refused With clothes 253.732060377702 BP Diastolic BP Location Tested BP Systolic BP Type 78 L arm 128 sitting Fetus Heart Rate Present A 135 Fetus Movement Comments Flowsheet Date 04/05/2023 Zambrano Score Blood Edema Fundus Height Fundus Units Glucose Ketones Leukocytes Nitrite Labor Signs Protein Cervic Dilation Cervic Effacement Cervic Station Type Weight in lbs Pre/Post Dialysis Refused BP Diastolic BP Location Tested BP Systolic BP Type Fetus Heart Rate Present Fetus Movement Comments Flowsheet Date 04/10/2023 Zambrano Score Blood Edema Fundus Height Fundus Units Glucose Ketones Leukocytes Nitrite Labor Signs Protein Cervic Dilation Cervic Effacement Cervic Station Type Weight in lbs Pre/Post Dialysis Refused BP Diastolic BP Location Tested BP Systolic BP Type Fetus Heart Rate Present Fetus Movement Comments GBS negative faxed to OB Flowsheet Date 04/12/2023 Zambrano Score Blood Edema Fundus Height Fundus Units Glucose Ketones Leukocytes Nitrite Labor Signs Protein Cervic Dilation Cervic Effacement Cervic Station 41 none 2+ trace Type Weight in lbs Pre/Post Dialysis Refused Weight 255.341303278431 BP Diastolic BP Location Tested BP Systolic BP Type 70 115 Fetus Heart Rate Present A 140 Fetus Movement Comments Lots of hip pain and groin p ain, rt. Flowsheet Date 04/19/2023 Zambrano Score Blood Edema Fundus Height Fundus Units Glucose Ketones Leukocytes Nitrite Labor Signs Protein Cervic Dilation Cervic Effacement Cervic Station 44 trace trace Negative neg Type Weight in lbs Pre/Post Dialysis Refused With clothes 255.392763273701 BP Diastolic BP Location Tested BP Systolic BP Type 76 L arm 132 sitting Fetus Heart Rate Present A 150 Fetus Movement Comments Did anesthesia consult this morning, C/S scheduled for 04/23.baby girl Iris. Irby peds. Flowsheet Date 02/12/2024 Zambrano Score Blood Edema Fundus Height Fundus Units Glucose Ketones Leukocytes Nitrite Labor Signs Protein Cervic Dilation Cervic Effacement Cervic Station Type Weight in lbs Pre/Post Dialysis Refused With clothes 257.936217489663 BP Diastolic BP Location Tested BP Systolic BP Type Fetus Heart Rate Present Fetus Movement Comments Flowsheet Date 08/06/2024 Zambrano Score Blood Edema Fundus Height Fundus Units Glucose Ketones Leukocytes Nitrite Labor Signs Protein Cervic Dilation Cervic Effacement Cervic Station Type Weight in lbs Pre/Post Dialysis Refused Weight 264.697266862022 BP Diastolic BP Location Tested BP Systolic BP Type 78 L arm 124 sitting Fetus Heart Rate Present Fetus Movement Comments Menstrual History Last Menstrual Date Menses Monthly On Bcp Conception Prior Menses Frequency Hcg Plus Date Menarche Onset Age 0307/20/2022 Genetic Screening And Infection History Question Response Note Patient's Age Will Be 35 Yea rs Or Older At Estimated Date of Delivery false Thalassemia (Azeri, Emirati, Mediterranean, Or Background): MCV < 80 false Neural Tube Defect (Meningom yelocele, Spina Bifida, Or Anencephaly) false Congenital Heart Defect false Down Syndrome false Corky-Sachs (eg, Buddhist, Cajun, Greenlandic-Micronesian) f alse Karena Disease false Sickle Cell Disease Or Trait () false Hemophilia Or Other Blood Disorders false Muscular Dystrophy false Cystic Fibrosis false [place]'s Chorea false Intellectual Disability/Autism false If Yes, Was Person Tested For Fragile X? false Other Inherited Genetic Or Chromosomal Disorder false Maternal Metabolic Disorder (eg, Type 1 Diabetes , PKU) false Patient Or Baby's Father Had A Child With Defects Not Listed Above false Recurrent Loss, Or A Stillbirth false Medications (including Suppl ements, Vitamins, Herbs, OTC Drugs), Illicit/Recreational Drugs, Alcohol true If Yes, Agent(s) And Strength/Dosage true Trazodone, Zoloft Any Other Genetic History false Live With Someone With TB Or Exposed To TB false Patient Or Partner Has History Of Genital Herpes false Rash Or Viral Illness Since Last Menstrual Perio d false History Of STD, Gonorrhea, Chlamydia, HPV, Syphi lis false Other Infection History false History of HIV false History of Hepatitis false Prior GBS-infected child false Hemoglobinopathy Or Carrier false Other Structural Defect false Recent Travel History Outside of Country false Mental Retardation/Autism false Delivery Information Delivery Date Delivery Type Labor Anesthesia Weeks Gestation Incision Type Labor Labor Length Hrs Delivered By Post Complications Tubal Sterilization Discharge Date Comments 3 Indu[facility] d [facility] 39.1 Low Transvers e false Alyson Irby MD None true 04/26/2023 scheduled Discharge Information Feeding Method Contraceptive Method Maternal HG B and HCT Levels Bottle
--- NOTE | 2025-02-08 21:00 | ECG_ITS ---
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 Measurements Intervals [place] Rate: 87 P: 2 WA: 144 QRS: 96 QRSD: 101 T: 57 QT: 358 QTc: 433 Interpretive Statements SINUS RHYTHM Non Specific ST-T changes BORDERLINE RIGHT AXIS DEVIATION [QRS AXIS > 90] No previous ECG available for comparison Electronically Signed On 02-09-2025 23:27:44 CDT by Yaya Barriga M.D. [email or web address]
--- NOTE | 2025-02-08 21:22 | USR_ITS ---
PROCEDURE INFORMATION: Exam: US Abdomen, Limited; Right Upper Quadrant Exam date and time: 02/08/2025 10:11 PM Age: 29 years old Clinical indication: Abdominal pain; Epigastric; Additional info: Epigastric/ruq pain TECHNIQUE: Imaging protocol: Real time ultrasound of the abdomen with image documentation. Limited exam focused on the right upper quadrant. COMPARISON: No relevant prior studies available. FINDINGS: Liver: Slight increased echogenicity of the liver may indicate fatty infiltration. Otherwise unremarkable liver, no focal abnormality. The main portal vein appears patent, with hepatopetal flow. Gallbladder: There is an 8-9 mm shadowing gallstone in the region of the gallbladder neck. No gallbladder wall thickening or pericholecystic fluid. The gallbladder appears upper normal in size, transverse diameter of about 4 cm. Biliary ducts: No biliary dilation, common duct measures 3.0 mm. Pancreas: Visible pancreas unremarkable. Some of the pancreas is obscured by bowel gas. Right kidney: Images of the right kidney show no hydronephrosis. US/US gall bladder 22109 IMPRESSION: 1. Cholelithiasis, see additional details above. 2. No biliary tree dilation. 3. Other findings discussed above.
[2025-02-08 21:39] LABS: Hematocrit 41.8 % (36-47); Hemoglobin 13.30 g/dL (11.27-16.99); Mean Corpuscular HGB Conc 31.8 g/dL (30-55); Mean Corpuscular Hemoglobin 27.3 pg (27-33); Mean Corpuscular Volume 85.8 fl (85-98); Nucleated Red Blood Cells % 0 %; Platelet Count 288 10^3/cmm (157-399); Red Blood Count 4.87 10^6/uL (3.85-5.65); White Blood Count 10.54 10^3/uL (3.29-11.43)
[2025-02-08 22:11] LABS: HCG, Serum Qual Negative (Negative)
--- NOTE | 2025-02-08 22:31 | ED_ITS ---
HPI - Abdominal Pain 2 General: Chief Complaint: Abdominal Pain Stated Complaint: CP Time Seen by Provider: 02/08/25 22:20 Source: patient Mode of arrival: ambulatory Limitations: no limitations History of Present Illness: Patient is a 29-year-old female presents to ED today with a complaint of epigastric/RUQ abdominal pain beginning several hours ago. She states she has had similar symptoms previously but nothing ever like this stating that the severity of this episode was worse. She feels like her pain radiates up into her chest and around into the right side of her back. She does not feel like symptoms are affected by eating. She denies nausea or vomiting. At my time of examination, she tells me that her pain has significantly improved compared to a few hours ago. She has not been running fevers. She is not currently having chest pain, shortness of breath, or difficulty breathing. She does take Zepbound and has had a lot of belching and gas while on this medication. MD elicited complaint: abdominal pain Pertinent past history: none Onset (ago): hour(s) Pain Consistency: intermittent and other (improved at time of my examination) Location: Epigastric and RUQ Severity: moderate Pain scale (0-10): 4 Quality: stabbing, fullness and sharp Radiation: back and chest Migration to: no migration Exacerbating factors: nothing Relieving factors: nothing Associated Symptoms: Denies change in bowel habits, chills, dysuria, fever(s), nausea, syncope and vomiting Related Data Date of Last Menstrual Period: 02/04/25 Home Medications ?Medication ?Instructions ?Recorded ?Confirmed tirzepatide (weight loss) 5 mg/0.5 mg SUBCUT .Weekly 0 11/19/24 11/19/24 mL subcutaneous pen injector (Zepbound) Previous Rx's ?Medication ?Instructions ?Recorded sertraline 100 mg tablet (Zoloft) 100 mg PO DAILY #30 tabs 05/21/24 cephalexin 500 mg capsule 500 mg PO TID #21 caps 09/27 hydrocodone 5 mg-acetaminophen 325 1 tab PO Q6H PRN pa in #14 tabs 02/09/25 mg tablet ondansetron 4 mg disintegrating 4 mg PO Q8H PRN nausea and 02/09/25 tablet vomiting #14 tabs Allergies Allergy/AdvReac Type Severity Reaction Status Date / Time No Known Allergies Allergy Verified 11/19/24 15:50 Review of Systems 2 Const: Denies: fever(s), chills, body aches, fatigue or malaise Card: Reports: chest pain (resolved); Denies: palpitations, irregular heart rhythm, edema, swelling of feet/ankles, lightheadedness, syncope, pre-syncope, dyspnea on exertion, orthopnea, leg pain with exertion or acrocyanosis Resp: Denies: dyspnea, pain on inspiration or chest congestion GI: Reports: abdominal pain (improved); Denies: nausea, vomiting or change in bowel habits : Denies: flank pain, difficulty voiding, dysuria, urinary frequency, urinary urgency or urinary hesitancy Musc: Denies: neck pain, back pain, extremity pain, extremity swelling, joint pain, joint swelling or joint redness Skin/Breast: Denies: rash Neuro: Denies: headache(s) or dizziness PFSH ED 2 PFSH: Medical History Psychiatric care No significant past medical history Surgical History No significant past surgical history Social History Smoking and tobacco/nicotine status: current every day tobacco/nicotine user cigarettes Packs smoked per day: 1 Years cigarettes smoked: 12 Quit status (tobacco/nicotine): not considering quitting Second hand smoke exposure: No Alcohol intake: former Year of sobriety/quit date alcohol: 2021 Substance/Drug Use: never Female Reproductive History: Date of last menstrual period: 02/04/25 Physical Exam 2 Const: COMMON NORMALS: no acute distress, patient oriented x3, no limitations, alert and well nourished GENERAL APPEARANCE: cooperative NUTRITIONAL APPEARANCE: obese morbidly obese (BMI 42.2) HENMT: COMMON NORMALS: normocephalic and atraumatic HEAD & SCALP: n ormocephalic and atraumatic Eye: COMMON NORMALS: no scleral icterus Neck/C-Spine: COMMON NORMALS: full ROM, no lymphadenopathy, supple and no meningeal signs Chest: COMMONS NORMALS: normal inspection of the chest Resp: COMMON NORMALS: normal respiratory effort and clear to auscultation bilaterally AUSCULTATION: clear to auscultation bilaterally Cardio: COMMON NORMALS: regular rate and regular rhythm RATE: regular rate RHYTHM: regular rhythm GI: COMMON NORMALS: Normal to inspection, nondistended, normoactive bowel sounds present, Soft to palpation, No hepatosplenomegaly present and no masses INSPECTION: Yes normal to inspection AUSCULTATION: Yes normoactive bowel sounds PALPATION: Yes Soft to palpation, Yes Tenderness to palpation present (GI) (epigastric/RUQ) Details: RUQ, No Guarding due to palpation present (GI), No Rigid due to palpation and Yes No hepatosplenomegaly present : COMMON NORMALS: Yes no CVA tenderness BLADDER/KIDNEY EXAM: Yes no CVA tenderness Back/Pelvis: COMMON NORMALS: no CVA tenderness Extremity: GENERAL: Yes normal exam except as noted Neuro: COMMON NORMALS: patient oriented x3 SENSORIUM/ORIENTATION: Yes alert MENINGEAL SIGNS: Yes no meningeal signs Skin: COMMON NORMALS: no rashes or lesions noted GENERAL SKIN EXAM: no rashes or lesions noted Course 2 Vital Signs: Vital signs: Vital Signs Temperature 98.4 F 02/08/25 20:53 Pulse Rate 89 02/09/25 00:00 Respiratory Rate 16 02/08/25 20:53 Blood Pressure 104/71 02/09/25 00:00 Pulse Oximetry 99 02/09/25 00:00 Oxygen Delivery Me thod Room Air 02/09/25 00:00 MDM - Abdominal Pain Medical Decision Making Patient has not had much discomfort during her emergency department stay-she states her pain was excruciating prior to arrival. Vital signs are stable. Her blood work showing a normal white count. Chemistry panel overall is nonactionable. She did have baseline and 2-hour troponins ran based on her complaint of chest pain from triage. These were unremarkable. UA is contaminated. She is not having any UTI-like symptoms. Her CXR was unremarkable. Gallbladder ultrasound showing cholelithiasis with a stone near the neck of her gallbladder-suspect this is culprit of her waxing and waning symptoms. At this time we will have her follow-up with general surgery. She was given strict return precautions. I will prescribe her pain/nausea medication she may use as needed. Differential Diagnosis Likely abdominal pain, constipation, gastroenteritis and pancreatitis Medical Records I reviewed the patient's medical records. Lab Data I reviewed the patient's lab results. 02/08/25 21:31 02/08/25 21:31 Labs/Radiology: Radiology Impressions Chest X-Ray 02/08/25 20:53 IMPRESSION: 1. Essentially unremarkable single view chest. 2. Other details discussed above. Gallbladder Ultrasound 02/08/25 21:22 IMPRESSION: 1. Cholelithiasis, see additional details above. 2. No biliary tree dilation. 3. Other findings discussed above. Laboratory Results WBC 10.54 10^3/uL (3.29-11.43) 02/08/25 21: RBC 4.87 10^6/uL (3.85-5.65) 02/08/25: Hgb 13.30 g/dL (11.27-16.99) 02/08/25: Hct 41.8 % (36-47) 02/08/25: MCV 85.8 fl (85-98) 02/08/25: MCH 27.3 pg (27-33) 02/08/25: MCHC 31.8 g/dL (30-55) 02/08/25: RDW 14.9 % (12.1-15.1) 02/08/25: Plt Count 288 10^3/cmm (157-399) 02/08/25: MPV 11.5 fL (7.4-10.4) H 02/08/25: Neut % (Auto) 57.9 % 02/08/25: Lymph % (Auto) 30.6 % 02/08/25: [place] % (Auto) 6.5 % 02/08/25: Eos % (Auto) 3.9 % 02/08/25: Baso % (Auto) 0.8 % 02/08/25: Neut # (Auto) 6.12 10^3/uL (1.8-7.7) 02/08/25: Lymph # (Auto) 3.2 10^3/uL (0.8-4.8) 02/08/25: [place] # (Auto) 0.7 10^3/uL (0.2-0.9) 02/08/25: Eos # (Auto) 0.4 10^3/uL (0.0-0.8) 02/08/25 21: Baso # (Auto) 0.1 10^3/uL (0.0-0.1) 02/08/25 21: Nucleated RBC % (auto) 0 % 02/08/25 21: Nucleated RBCs # 0.0 /100WBC 02/08/25 21: Sodium 138 mmol/L (136-145) 02/08/25 21: Potassium 3.8 mmol/L (3.5-5.1) 02/08/25 21: Chloride 102 mmol/L (98-107) 02/08/25 21: Carbon Dioxide 20 mmol/L (22-29) L 02/08/25: Anion Gap 19.8 (5-19) H 02/08/25 21: BUN 11 mg/dL (6-20) 02/08/25 21: Creatinine 0.7 mg/dL (0.5-0.9) 02/08/25 21: GFR Calculation 98.3 mL/min (90-130) 02/08/25 21: Glucose 108 mg/dL (65-115) 02/08/25 21: Calculated Osmolality 286 mOsm/kg (285-295) 02/08/25: Calcium 9.5 mg/dL (8.5-10.5) 02/08/25 21: Total Bilirubin 0.2 mg/dL (0.15-1.2) 02/08/25 21: AST 13 U/L (0-32) 02/08/25 21: ALT 18 U/L (0-33) 02/08/25 21: Alkaline Phosphatase 113 U/L (35-105) H 02/08/25 21: Troponin T Baseline < 6 ng/L (0-10) 02/08/25 21: Troponin T 120 Minute < 6.0 ng/L (0-10) 02/08/25 23:24 Delta Troponin T 0 ABS# (0-10) 02/08/25 23:24 Total Protein 8.0 g/dL (6.6-8.7) 02/08/25 21: Albumin 4.4 g/dL (3.5-5.2) 02/08/25 21:31 Globulin 3.6 g/dL (1.3-4.6) 02/08/25 21: Lipase 27 U/L (13-60) 02/08/25 21:31 HCG, Qual Negative (Negative) 02/08/25 21:31 Urine Color Yellow (Yellow) 02/08/25 23:07 Urine Appearance Cloudy (CLEAR) A 02/08/25 23:07 Urine pH 6.5 (5-7) 02/08/25 23:07 Ur Specific [place] 1.020 (1.005-1.030) 02/08/25 23:07 Urine Protein Trace (Negative) 02/08/25 23:07 Urine Glucose (UA) Norm (Normal) 02/08/25 23:07 Urine Ketones Negative (Negative) 02/08/25 23:07 Urine Blood Neg (Negative) 02/08/25 23:07 Urine Nitrate Negative (Negative) 02/08/25 23:07 Urine Bilirubin Neg (Negative) 02/08/25 23:07 Urine Urobilinogen Norm mg/dL (Negative) 02/08/25 23:07 Ur Leukocyte Esterase 2+ (Negative) H 02/08/25 23:07 Urine RBC 0-2 /hpf (0-2) 02/08/25 23:07 Urine WBC 5-10 /hpf (0-5) H 02/08/25 23:07 Ur Squamous Epith Cells 10-15 /hpf (0-5) H 02/08/25 23:07 Amorphous Sediment 3+ /hpf 02/08/25 23:07 Urine Bacteria Trace /hpf (NONE) 02/08/25 23:07 Coarse Granular Casts 0-4 /lpf H 02/08/25 23:07 Urine Mucus Trace /hpf 02/08/25 23:07 All radiology interpretation(s) finalized by discharge Discharge Plan Discharge Patient Disposition: Home Clinical Impression: Biliary colic Cholelithiasis Qualifiers: Cholelithiasis location: gallbladder Cholecystitis presence: without cholecystitis Biliary obstruction: without biliary obstruction Qualified Code(s): K80.20 - Calculus of gallbladder without cholecystitis without obstruction Condition: Stable Prescriptions: New hydrocodone-acetaminophen 5-325 mg tablet 1 tab PO Q6H PRN (Reason: pain) Qty: 14 0RF ondansetron 4 mg tablet,disintegrating 4 mg PO Q8H PRN (Reason: nausea and vomiting) Qty: 14 0RF No Action cephalexin 500 mg capsule 500 mg PO TID Qty: 21 0RF sertraline [Zoloft] 100 mg tablet 100 mg PO DAILY Qty: 30 11RF Zepbound 5 mg/0.5 mL pen injector SUBCUT .Weekly Discharge Orders: Discharge ED (Routine); Ordered 02/09/25 Ordered By: Sara Snider Referrals: Alyson Irby MD [Primary Care Provider, [facility]] Patient Instructions: Biliary Colic (ED), Gallstones (ED), Patient Portal & [facility] Instructions Activity Restrictions/Additional Instructions: As we discussed, we will have case management set you up to see general surgery for further evaluation. You may use the prescribed pain/nausea medications as needed for significant discomfort. Try to avoid greasy/fatty foods is much as possible. You need to return to the emergency department for onset of severe or not uncontrollable pain, repetitive episodes of vomiting, fevers, yellowing to your skin or eyes, generally feeling worse or unwell, or any other concerns you may have. I hope you begin to feel better soon. Print Language: Armenian Coding Level of Care Code ED Biometrics Consultant for Michael Pop
[2025-02-08 22:55] LABS: Alanine Aminotransferase 18 U/L (0-33); Albumin Level 4.4 g/dL (3.5-5.2); Alkaline Phosphatase 113 U/L (35-105); Anion Gap 19.8 (5-19); Aspartate Amino Transferase 13 U/L (0-32); Blood Urea Nitrogen 11 mg/dL (6-20); Calcium 9.5 mg/dL (8.5-10.5); Carbon Dioxide 20 mmol/L (22-29); Chloride 102 mmol/L (98-107); Creatinine Clr Calc Pharmacy 138.4357; Globulin 3.6 g/dL (1.3-4.6); Glucose 108 mg/dL (65-115); Lipase 27 U/L (13-60); Osmolality Calculated 286 mOsm/kg (285-295); Potassium 3.8 mmol/L (3.5-5.1); Sodium 138 mmol/L (136-145); Total Protein 8.0 g/dL (6.6-8.7)
[2025-02-08 22:56] LABS: Troponin(5th) Baseline < 6 ng/L (0-10)
[2025-02-08 23:08] VITALS: BP 115/79; PULSE 79; O2SAT 99
[2025-02-08 23:49] VITALS: BP 99/69; PULSE 77; O2SAT 98
[2025-02-08 23:51] LABS: Troponin 5 2HR < 6.0 ng/L (0-10); Troponin 5 2HR Delta 0 ABS# (0-10)
[2025-02-09] VITALS: BP 104/71; PULSE 89; O2SAT 99
[2025-02-09 00:04] LABS: Specific Gravity, Urine 1.020 (1.005-1.030)
[2025-02-09 00:05] LABS: Glucose Urine UA Norm (Normal); Nitrate Urine Negative (Negative); UA Manual Slide Review YES
[2025-02-09 00:06] LABS: Add Urine Microscopic? YES
[2025-02-09 00:28] VITALS: BP 104/71; PULSE 80; O2SAT 97
--- NOTE | 2025-02-09 09:47 | DCPLANNER ---
messaged gen surg for er f/u
== END 2025-02-09 00:29 | disposition home or self-care (01) ==
PROVIDERS: Emergency Provider Physician Assistant; PCP Family Medicine
DX: K80.70 Calculus of gallbladder and bile duct without cholecystitis without obstruction (principal); F17.210 Nicotine dependence, cigarettes, uncomplicated
CPT/HCPCS: 36415; 71045; 76705; 80053; 81001; 83690; 84484; 84703; 85025; 93005; 99285

== ENCOUNTER 2025-03-10 11:45 | Day surgery (SDC) | payer BC, MEDICAID, SELFPAY ==
--- NOTE | 2025-03-10 11:40 | W.PM.OPSUD ---
Surgery/Procedure H&P Update DATE OF PROCEDURE: March 10, 2025 DATE H&P PERFORMED: 02/13/25 H&P UPDATE INFORMATION: I have reviewed H&P completed within last 30 days, I have examined patient prior to procedure, No changes to prior documentation and Risks and benefits of the procedure reviewed PLANNED PROCEDURE: Operation Date: 03/10/25 13:00 Proposed Procedures p EGD EGD with Biopsy 48932 K82.9(Not Applicable) - Mckinley Najera MD
[2025-03-10 11:59] VITALS: BP 111/71; PULSE 96; RESP 17; TEMP 36.4; O2SAT 97; BMI 40.4
[2025-03-10 12:04] LABS: OR HCG Qualitative Urine Negative (Negative)
--- NOTE | 2025-03-10 12:23 | ANES.PREANE2 ---
Pre-Anesthetic Assessment Height/Weight: Height 5 ft 3.5 in Weight 232 lb Temp Pulse Resp BP Pulse Ox O2 Del Method 97.5 F L 96 17 111/71 97 Room Air 03/10/25 11:59 03/10/25 11:59 03/10/25 11:59 03/10/25 11:59 03/10/25 11:59 03/10/25 11:59 Preop Diagnosis: Biliary issues Operation Date: 03/10/25 13:00 Proposed Procedures p EGD EGD with Biopsy 57172 K82.9(Not Applicable) - Mckinley Najera MD Was Beta Jazz taken within 24 hours: N/A Was Clonidine taken within 24 hours: N/A Last intake: Intake Last Liquid Date 03/09/25 Last Liquid Time 22:00 Last Solid Date 03/09/25 Last Solid Time 22:00 Social Tobacco and No alcohol Exam alert, oriented x 3, clear to auscultation bilaterally and regular rate & rhythm Airway Submandibular: within normal limits Cervical ROM: within normal limits Mallampati: Class II Dentition: full Anesthetic Plan ASA status: 3 Anesthesia: MAC Other: No prior issues with anesthesia NPO since yesterday History of GERD, patient states that this is diet controlled however she has Protonix on her list On tirzepatide, last taken 03/01/2025 PTSD Patient states that she has been experiencing biliary issues METs greater than 4 Plan for MAC anesthesia Medications/Allergies Home Medications ?Medication ?Instructions ?Recorded ?Confirmed ?Last Taken ?Type sertraline 100 mg tablet (Zoloft) 100 mg PO DAILY #30 tabs 05/21/24 03/04/25 03/04/25 Rx tirzepatide (weight loss) 5 mg/0.5 5 mg SUBCUT .Weekly 11/19/24 03/04/25 03/01/25 History mL subcutaneous pen injector (Zepbound) ondansetron 4 mg disintegrating 4 mg PO Q8H PRN nausea and 02/09/25 03/04/25 Unknown Rx tablet vomiting #14 tabs pantoprazole 40 mg tablet,delayed 40 mg PO BID 30 days #60 tabs 02/13/25 03/04/25 03/03/25 Rx release (Protonix) Allergies Allergy/AdvReac Type Severity Reaction Status Date / Time No Known Allergies Allergy Verified 03/04/25 14:36 Current Medications Generic Name Dose Route Start Last Admin Trade Name Freq PRN Reason Stop Dose Admin Sodium Chloride 1,000 mls @ 15 mls/hr 03/10/25 11:49 03/10/25 12:08 Sodium Chloride 0.9% IV 03/11/25 11:48 15 mls/hr .Q24H PRN Administration COLONOSCOPY FLUIDS PFSH Anesthesia Medical History (Updated 02/17/25 @ 00:00 by AMMON Solis) Psychiatric care No significant past medical history Surgical History No significant past surgical history Social History Smoking and tobacco/nicotine status: current every day tobacco/nicotine user (1PPD) cigarettes Packs smoked per day: 1 Years cigarettes smoked: 12 Quit status (tobacco/nicotine): not considering quitting Second hand smoke exposure: No Alcohol intake: former Year of sobriety/quit date alcohol: 2021 Substance/Drug Use: never
[2025-03-10 13:13] VITALS: BP 104/49; PULSE 80; RESP 16; TEMP 36.6; O2SAT 97
[2025-03-10 13:29] VITALS: BP 120/79; PULSE 67; RESP 17; O2SAT 96
--- NOTE | 2025-03-10 13:49 | ANE.PACU2 ---
Inpatient post-anesthesia follow up: Airway intact: Yes Vital signs: Temperature 97.9 F Pulse Rate 67 Respiratory Rate 17 Blood Pressure 120/79 Pulse Oximetry 96 Oxygen Delivery Me thod Room Air Oxygen Flow Rate Fraction of Inspir ed Oxygen Hydration adequate: Yes Nausea and vomiting: No Pain level: 1 Mental status: Baseline
== END 2025-03-10 13:46 | disposition home or self-care (01) ==
PROVIDERS: Student in an Organized Health Care Education/Training Program; PCP Family Medicine; Visit Provider Student in an Organized Health Care Education/Training Program
PROC: 0DJ08ZZ Inspection of Upper Intestinal Tract, Via Natural or Artificial Opening Endoscopic (ICD-10-PCS; principal; 2025-03-10 13:00)
DX: R12 Heartburn (principal); K29.50 Unspecified chronic gastritis without bleeding; K21.9 Gastro-esophageal reflux disease without esophagitis; F17.210 Nicotine dependence, cigarettes, uncomplicated
CPT/HCPCS: 43239; 81025; 88305; 88342; J2704; J7030